=== PATIENT | female | born 1945 | race Caucasian/White ===

== ENCOUNTER → 2016-09-20 | Outpatient (CLI) | payer MEDICARE ==
[~2016-09-20] MED LIST: /PANT40TA; /SUCR1TA; ACET65TA; GINGER; NEUR800T; TUMERIC; VITACAP31
--- NOTE | 2016-09-20 11:00 | REP ---
Chest x-ray: Two views. History: Cough. 2 weeks duration. . Comparison study: August 11, 2015 . Findings: The lungs are well inflated and free of infiltrate. The pleural angles are sharp. The heart size is normal. Pulmonary vasculature is not increased. No significant bony abnormality is seen. Impression: Negative chest x-ray. Signed by Justo Corona MD 09/20/2016 10:52 A
== END ==
LOC: M WUC 10:43
PROVIDERS: ATTEND Physician Assistant
DX: R05 Cough (principal)

== ENCOUNTER → 2017-08-26 | Outpatient (CLI) | payer MEDICARE ==
[2017-08-26 16:28] LABS: MEAN CORPUSCULAR HGB CONC 32.3 g/dl (32.0-36.5); MEAN CORPUSCULAR VOLUME 92.8 fl (80.0-96.0); PLATELET COUNT, AUTOMATED 292 10^3/uL (150-450); RED CELL DISTRIBUTION WIDTH 13.7 % (11.5-14.5); WHITE BLOOD COUNT 5.9 10^3/uL (4.0-10.0)
[2017-08-26 18:13] LABS: ALBUMIN 3.7 GM/DL (3.2-5.2); ALBUMIN/GLOBULIN RATIO 1.48 (1.00-1.93); ALKALINE PHOSPHATASE 65 U/L (45-117); ALT/SGPT 20 U/L (12-78); ANION GAP 6 MEQ/L (8-16); AST/SGOT 19 U/L (7-37); BILIRUBIN,TOTAL 0.2 MG/DL (0.2-1.0); BLOOD UREA NITROGEN 18 MG/DL (7-18); CALCIUM LEVEL 8.6 MG/DL (8.8-10.2); CARBON DIOXIDE LEVEL 31 MEQ/L (21-32); CHLORIDE LEVEL 107 MEQ/L (98-107); CHOLESTEROL LEVEL 188 MG/DL (<200); CREATININE FOR GFR 0.98 MG/DL (0.55-1.02); FREE T4 0.93 NG/DL (0.76-1.46); GLOMERULAR FILTRATION RATE 59.6 (>39); GLUCOSE, FASTING 87 MG/DL (83-110); POTASSIUM SERUM 4.1 MEQ/L (3.5-5.1); SODIUM LEVEL 144 MEQ/L (136-145); TOTAL PROTEIN 6.2 GM/DL (6.4-8.2); TRIGLYCERIDES LEVEL 164 MG/DL (<150)
== END ==
LOC: M WUC 15:07
DX: D50.9 Iron deficiency anemia, unspecified (principal); E78.5 Hyperlipidemia, unspecified
CPT/HCPCS: 83735

== ENCOUNTER → 2017-08-31 | Outpatient (CLI) | payer MEDICARE | LOC: M ADAMS 09:22 | DX: M19.012 Primary osteoarthritis, left shoulder (principal); Z23 Encounter for immunization | CPT/HCPCS: 73030; 82746 ==

== ENCOUNTER → 2017-08-31 | Outpatient (REF) | payer MEDICARE ==
[2017-08-31 12:57] LABS: FOLATE 9.6 NG/ML; VITAMIN B12 LEVEL 395 PG/ML
[2017-08-31 13:10] LABS: FERRITIN 31 NG/ML (8-252); IRON (FE) 80 UG/DL (50-170); PERCENT SATURATION 24.4 % (13.2-45.0); TOTAL IRON BINDING CAPACITY 328 UG/DL (250-450)
== END ==
LOC: M SFHCADAM 09:37
DX: D50.8 Other iron deficiency anemias (principal)
CPT/HCPCS: 82746

== ENCOUNTER → 2017-12-28 | Outpatient (CLI) | payer MEDICARE | LOC: M WUC 10:43 | DX: M25.561 Pain in right knee (principal); M25.562 Pain in left knee | CPT/HCPCS: 73560 ==

== ENCOUNTER 2019-01-10 07:01 | Emergency (ER) | payer MEDICARE ==
[~2019-01-10] VITALS: Ht 162.6 cm; Wt 68.5 kg
[~2019-01-10 07:01] MED LIST changes: -/PANT40TA; -/SUCR1TA; +PROT1TAB2; +SUCR1TAB56
[2019-01-10] MEDS ORDERED: NS 1,000 ML IV ONE (07:30)
[2019-01-10 07:57] LABS: BASO # 0.1 10^3/uL (0.0-0.2); BASO % 0.6 % (0.0-1.0); EOS # 0.2 10^3/uL (0.0-0.50); EOS % 2.2 % (0.0-3.0); HEMATOCRIT 42.3 % (36.0-47.0); HEMOGLOBIN 13.6 g/dl (12.0-15.5); LYMPH # 1.3 10^3/uL (1.5-4.5); LYMPH % 15.1 % (24.0-44.0); MEAN CORPUSCULAR HGB CONC 32.2 g/dl (32.0-36.5); MEAN CORPUSCULAR VOLUME 93.4 fl (80.0-96.0); MONO # 0.4 10^3/uL (0.0-0.8); NEUTROPHILS # 6.7 10^3/uL (1.8-7.7); NEUTROPHILS % 76.8 % (36.0-66.0); PLATELET COUNT, AUTOMATED 301 10^3/uL (150-450); RED BLOOD COUNT 4.53 10^6/uL (4.00-5.40); WHITE BLOOD COUNT 8.7 10^3/uL (4.0-10.0)
[2019-01-10 08:33] LABS: ALBUMIN 3.5 GM/DL (3.2-5.2); ALT/SGPT 20 U/L (12-78); AMYLASE 49 U/L (25-115); BILIRUBIN,DIRECT 0.1 MG/DL (0.0-0.2); BILIRUBIN,TOTAL 0.5 MG/DL (0.2-1.0); BLOOD UREA NITROGEN 21 MG/DL (7-18); CALCIUM LEVEL 8.5 MG/DL (8.8-10.2); CARBON DIOXIDE LEVEL 27 MEQ/L (21-32); CHLORIDE LEVEL 105 MEQ/L (98-107); CPK CREATINE PHOSPHOKINASE 103 U/L (26-192); GLUCOSE, FASTING 113 MG/DL (70-100); LIPASE 81 U/L (73-393); MB/CK RELATIVE INDEX 1.17 (< OR =4); POTASSIUM SERUM 4.2 MEQ/L (3.5-5.1); SODIUM LEVEL 138 MEQ/L (136-145); TROPONIN I < 0.02 NG/ML (< 0.10)
--- NOTE | 2019-01-10 09:29 | REP ---
Right quadrant sonography: History: Epigastric pain and nausea. Comparison CT study is from February 05, 2009. Findings: Scanning through the right upper quadrant of the abdomen demonstrates a normal sized thin-walled gallbladder without evidence of stone or polyp. There is a small quantity of right pleural fluid visible. Common bile duct is at the upper range of normal of 0.7 cm. There is a septated cyst in the liver measuring 1.8 cm in greatest diameter. There is a small cyst visible on the 2009 CT study. No focal liver mass lesion is seen. Limited views of the pancreas show no abnormality. There is no evidence of ascites. The right kidney measures 9.9 x 4.8 x 3.9 cm. Impression: There is a trace of right pleural fluid. A small cyst is seen in the left lobe of the liver unchanged. Otherwise negative right upper quadrant sonography. Electronically Signed by Justo Corona MD 01/10/2019 01:39 P
[2019-01-10] MEDS ORDERED: PANTOPRAZOLE 40MG INJ (PROTONIX) (C9113) IV ONE (09:45)
[2019-01-10] MEDS ORDERED: FAMOTIDINE INJ 20MG/2ML VIAL (S0028) IVP ONE (09:45)
--- NOTE | 2019-01-10 09:55 | REP ---
Chest two views HISTORY: Pleural effusion Comparison: 09/20/2016 The lungs are clear. The heart is normal in size. The pulmonary vasculature is normal in appearance. The bony structure is intact. IMPRESSION: No acute disease. Electronically Signed by Kenneth Bonilla MD 01/10/2019 09:47 A
[2019-01-10] MEDS ORDERED: PEPC1TAB5 PO (10:29)
[2019-01-10] MEDS ORDERED: PROT1TAB2 PO (10:29)
[2019-01-10 10:48] VITALS: BP 136/83
--- NOTE | 2019-01-10 13:33 | ECGEPIP ---
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
--- NOTE | 2019-01-16 13:56 | ED PDOC ---
Post-Departure Follow-Up salty may faxed formal report of us for fu Rosendo Akins MD January 16, 2019 13:56
== END 2019-01-10 10:55 | disposition home or self-care (01) ==
LOC: M ED 07:01
DX: R10.13 Epigastric pain (principal); K76.89 Other specified diseases of liver; M54.9 Dorsalgia, unspecified; K27.9 Peptic ulcer, site unspecified, unspecified as acute or chronic, without hemorrhage or perforation; Z87.01 Personal history of pneumonia (recurrent); Z87.440 Personal history of urinary (tract) infections; Z88.0 Allergy status to penicillin
CPT/HCPCS: 71046; 76705; 80048; 80076; 81001; 82150; 82550; 82553; 83690; 84484; 85025; 87086; 93005; 96360; 96374; 96375; 99284; C9113

== ENCOUNTER → 2019-03-27 | Outpatient (REF) | payer MEDICARE ==
[~2019-03-27] MED LIST changes: +CARA1TAB6 PO; +CBD OIL SL; +PEPC1TAB5 PO; +PROT1TAB2 PO
[2019-03-27 11:42] LABS: BASO # 0.1 10^3/uL (0.0-0.2); EOS # 0.3 10^3/uL (0.0-0.50); HEMATOCRIT 39.4 % (36.0-47.0); HEMOGLOBIN 12.3 g/dl (12.0-15.5); LYMPH # 1.2 10^3/uL (1.5-4.5); LYMPH % 23.2 % (24.0-44.0); MEAN CORPUSCULAR HEMOGLOBIN 29.7 pg (27.0-33.0); MEAN CORPUSCULAR HGB CONC 31.2 g/dl (32.0-36.5); MEAN CORPUSCULAR VOLUME 95.2 fl (80.0-96.0); MONO # 0.4 10^3/uL (0.0-0.8); MONO % 8.1 % (0.0-5.0); NEUTROPHILS # 3.2 10^3/uL (1.8-7.7); NEUTROPHILS % 62.1 % (36.0-66.0); PLATELET COUNT, AUTOMATED 293 10^3/uL (150-450); RED BLOOD COUNT 4.14 10^6/uL (4.00-5.40); WHITE BLOOD COUNT 5.2 10^3/uL (4.0-10.0)
[2019-03-27 12:41] LABS: CALCIUM LEVEL 9.5 MG/DL (8.8-10.2); CREATININE FOR GFR 1.03 MG/DL (0.55-1.30); FREE T4 0.93 NG/DL (0.76-1.46); GLOMERULAR FILTRATION RATE 55.9 (>39); MAGNESIUM LEVEL 2.3 MG/DL (1.8-2.4); POTASSIUM SERUM 4.7 MEQ/L (3.5-5.1); THYROID STIMULATING HORMONE 2.66 uIU/ML (0.358-3.740); TOTAL 25(OH) VITAMIN D 32.9 NG/ML (30.0-100.0)
== END ==
LOC: M SFHCPLAZ 10:20
PROVIDERS: ATTEND Family Medicine
DX: R00.2 Palpitations (principal); R53.82 Chronic fatigue, unspecified
CPT/HCPCS: 36415; 80048; 82306; 83735; 84439; 84443; 85025; G0463

== ENCOUNTER → 2019-05-29 | Outpatient (CLI) | payer MEDICARE ==
--- NOTE | 2019-06-01 23:09 | HOLTMON ---
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 No activity reported with the maximum heart rate. Rare isolated PACs, including few atrial runs. The longest with 10 beats. Rare isolated PVCs, including very few couplets. No ventricular run. No pause. There were no symptoms reported. Electronically Signed on 06-01-2019 23:09:38 EDT by Gasper Guidry
== END ==
LOC: M RAD 13:31
PROVIDERS: ATTEND Family Medicine
DX: R55 Syncope and collapse (principal)

== ENCOUNTER → 2019-06-18 | Outpatient (CLI) | payer MEDICARE ==
--- NOTE | 2019-06-29 02:27 | ECWPNPC ---
PATIENT NAME: CHRISTIE SIMON : 1945 GENDER: FEMALE VISIT DATE: 06/18/2019 DISCHARGE DATE: 06/18/19 1128 VISIT LOCKED DATE TIME: PHYSICIAN: VALORIE ROSS RESOURCE: VALORIE ROSS REASON FOR APPOINTMENT 1. STENOSIS HISTORY OF PRESENT ILLNESS PAIN SCREENIN74 Y/O REFERRED BY DR MCKEON FOR EVALUATION OF CHRONIC RIGHT LOW BACK AND RIGHT LEG PAIN.HISTORY OF LUMBAR SURGERY X2 IN 1994 AND 1996.PAIN IS DESCRIBEAS CONTINUOUS AND STABBING.PAIN IS AGGREVATED WITH WALKING AND RELIEVED AT REST.RATING PAIN VAS 4/10.DR SANTOS OFFERED ANOTHER SURGERY AND PATIENT DOES NOT WANT MORE SURGERY.DENIES RECENT FEVER,ILLNESS OR WEIGHT LOSS.DENIES BOWEL OR BLADDER INCONTINENCE. PATIENT HAS A COMPLAINT OF ACUTE OR CHRONIC PAIN :YES FALL RISK SCREENING: SCREENING :NO FALLS REPORTED IN THE LAST YEAR CURRENT MEDICATIONS TAKING PROTONIX 40 MG TABLET DELAYED RELEASE 1 TABLET ORALLY ONCE A DAY TAKING FAMOTIDINE 20 MG TABLET 1 TAB ORAL ONCE A DAY TAKING IRBESARTAN 75 MG TABLET 1/2 TABLET ORALLY BID NOT-TAKING CARAFATE 1 GM TABLET 1 TABLET ON AN EMPTY STOMACH ORALLY THREE TIMES DAILY BEFORE MEALS NOT-TAKING GABAPENTIN 100 MG CAPSULE 1 CAPSULE ORALLY THREE TIMES DAILY, NOTES: START WITH 1 CAPSULE AT BEDTIME AND INCREASE BY 1 CAPSULE WEEKLY UNTIL TAKING 3 TIMES DAILY NOT-TAKING TIZANIDINE HCL 2 MG TABLET 1 TABLET ORALLY BEFORE BEDTIME MEDICATION LIST REVIEWED AND RECONCILED WITH THE PATIENT PAST MEDICAL HISTORY IRON DEFICIENCY ANEMIA (CELIAC NEGATIVE) GERD S/P LUMBAR FUSION 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 CHEVY DEUTSCH) EGD (NORMAL)/COLONOSCOPY MILD DIVERTICULOSIS), DUODENAL BIOPSY NEGATIVE. (DR. AGUIRRE) 06/2012 LEFT KNEE REPLACEMENT 2005 RIGHT KNEE REPLACEMENT 2010 PELVIC FLOOR RECONSTRUCTION SECONDARY TO BLADDER PROLAPSE/HYSTERECTOMY 2009 CYSTOSCOPY FOR MICROSCOPIC HEMATURIA - NORMAL (DR. PEREZ 09/2012 EGD - NORMAL (PREVIOUS ULCERATIONS HEALED) COLONOSCOPY - TUBULAR ADENOMAS, DIVERTICULOSIS - MILD, HEMORRHOIDS 2008 EGD - GASTRIC AND DUDENAL ULCER - NEGATIVE H. PYLORI, BIOPSY NEGATIVE FOR MALIGNANCY, DOUDENITIS/GASTRITIS 2007 FAMILY HISTORY FATHER: MOTHER: 84 YRS, HEART ATTACK SIBLINGS: ALIVE, ONE SISTER FROM BREAST CANCER. DAUGHTER(S): LUPUS - POSSIBLE KIDNEY ISSUES RELATED TO DISEASE PROCESS. 2 SISTER(S) . 1 SON(S) , 2 DAUGHTER(S) . NO KNOWN FAMILY HX OF UROLOGIC CANCERS/DISEASES. DENIES ANY FAMILY HX SKIN CANCER OR PANCREATIC CANCER 1 SISTER FROM CANCER SON 2 YEARS FROM HEART ISSUES. SOCIAL HISTORY GENERAL: TOBACCO USE ARE YOU A:NONSMOKER OTHERS AT HOME: NONE. HOUSING: RENTS APARTMENT. EDUCATION LEVEL OF EDUCATION:HIGH SCHOOL DIET: REGULAR. LANGUAGE LIBYAN. NEW PATIENT PAIN DIARY TODAY'S VISITNOTES PATIENT DESCRIBES PAIN :STABBING FROM 0-10, WHAT LEVEL IS YOUR PAIN TODAY?4 PRECIPITATING FACTORS OVER EXERTION, WALKING TOO MUCH ALLEVIATING FACTORS GETTING OFF HER FEET AND STRETCHING PT HAS NOT WORKED TOO PAINFUL AFTER FUSION HEAT AND/OR ICE HAVE WORKED IMPACT ON FUNCTION JUST CAN NOT DO EVERYTHING I WOULD LIKE TO DO IS THERE A CHANCE YOU COULD BE ?NO HAVE YOU BEEN SICK IN THE LAST WEEK (COLD, COUGH, FEVER, FLU, ETC)NO DO YOU TAKE ANY BLOOD THINNERS?NO DO YOU HAVE ANY RASHES OR OPEN SORES?NO ANY CHANGE IN BOWEL OR BLADDER CONTROL?NO ARE YOU ALLERGIC TO SHELLFISH OR IV DYE?NO ARE YOU DIABETIC?NO DO YOU HAVE A PACEMAKER OR DEFIBRILLATOR?NO ANY NEW PROBLEMS WITH MEDICINES OR NEW ALLERGIESNO HAVE YOU FALLEN IN THE LAST 6 MONTHS?YES THINKS IT WAS RELATED TO HYPERTENSION, IT MADE HER VERY DIZZY, BUT STATES IT HAS BEEN BEEN WITH BP MEDS DO YOU USE ANY TYPE OF TOBACCO (SMOKE, SMOKELESS, CHEW, ETC.)NO ARE YOU ABUSED, NEGLECTED, OR IN AN UNSAFE ENVIRONMENT?NO DO YOU HAVE THOUGHTS OF HURTING YOURSELF OR SOMEONE ELSE?NO DO YOU NEED ANY PRESCRIPTIONS? UNSURE INTENSITY SCALE REVIEWEDNUMBER RECREATIONAL DRUG USE DENIES. EXERCISE: BIKES. LEARNING BARRIERS / SPECIAL NEEDS BARRIERS TO LEARNING?NO HEARING IMPAIRED?NO VISION IMPAIRED?YES COGNITIVELY IMPAIRED?NO :CORRECTIVE LENSES READINESS TO LEARN?YES LEARNING PREFERENCES?NO LEARNING CAPABILITIES PRESENT?YES EMOTIONAL BARRIERS?NO PAIN CLINIC PFS, CLERGY, PUBLIC HEALTH REFERRALS PFS REFERRAL NEEDED?NO CLERGY REFERRAL NEEDED?NO PUBLIC HEALTH REFERRAL NEEDED?NO WAS THE PROVIDER NOTIFIED OF ANY PERTINENT INFO?NO HAS THE PATIENT BEEN EDUCATED REGARDING HIS/HER PLAN OF CARE?YES PLEASE DOCUMENT ANY ADDTIONAL DETAILS.PLEASE FREE TEXT IN THE NOTES SECTION. HAS THE PATIENT BEEN EDUCATED REGARDING PAIN, THE RISK FOR PAIN, THE IMPORTANCE OF EFFECTIVE PAIN MANAGEMENT, AND THE PAIN ASSESSMENT PROCESS?YES LATEX QUESTIONNAIRE LATEX ALLERGY : HAVE YOU EVER DEVELOPED ANY TYPE OF REACTION AFTER HANDLING LATEX PRODUCTS SUCH RUBBER GLOVES, CONDOMS, DIAPHRAGMS, BALLOONS, SOCKS, OR UNDERWEAR?NO LATEX ALLERGY : HAVE YOU EVER DEVELOPED ANY TYPE OF REACTION DURING OR AFTER DENTAL APPOINTMENT, VAGINAL/RECTAL EXAMINATION, SURGICAL PROCEDURE, OR ANY OTHER EXPOSURE?NO LATEX RISK : HAVE YOU EVER HAD ANY DIFFICULTY BREATHING OR HIVES AFTER EATING OR HANDLING ANY FRUITS, OR VEGETABLES; SUCH KIWI, BANANAS, STONE FRUITS, OR CHESTNUTSNO LATEX RISK : DO YOU HAVE A PREVIOUS PERSONAL HISTORY OF MORE THAN NINE SURGERIES, SPINA BIFIDA, OR REPEATED CATHERIZATIONS? NO LATEX RISK : ARE YOU FREQUENTLY EXPOSED TO LATEX PRODUCTS IN YOUR OCCUPATION?NO DATE ASKED : 06/18/2019 [place] 1-2/DAY. ADVANCE DIRECTIVE ADVANCE DIRECTIVE DISCUSSED WITH PATIENT:NO STATES SHE HAS NO ADVANCED DIRECTIVES, HCP PAPERWORK GIVEN TO PT, PT DECLINES ASSISTANCE TO FILL OUT PAPERWORK 06/18/19 1040 [facility] MANDAEISM NO CONFUCIANISM BELIEFS THAT WOULD IMPACT HEALTH CARE. MARITAL STATUS: .. ALCOHOL SCREENING DID YOU HAVE A DRINK CONTAINING ALCOHOL IN THE PAST YEAR?YES HOW OFTEN DID YOU HAVE SIX OR MORE DRINKS ON ONE OCCASION IN THE PAST YEAR?NEVER (0 POINTS) HOW MANY DRINKS DID YOU HAVE ON A TYPICAL DAY WHEN YOU WERE DRINKING IN THE PAST YEAR?1 OR 2 (0 POINTS) HOW OFTEN DID YOU HAVE A DRINK CONTAINING ALCOHOL IN THE PAST YEAR?MONTHLY OR LESS (1 POINT) POINTS1 INTERPRETATIONNEGATIVE OCCUPATION: RETIRED. SEXUAL HX HAD SEX IN THE LAST 12 MONTHS (VAGINAL, ORAL, OR ANAL)?NO HAVE YOU EVER HAD AN STD?NO HOSPITALIZATION/MAJOR DIAGNOSTIC PROCEDURE SURGICAL RELATED ANEMIA 2008 CHILDBIRTH REVIEW OF SYSTEMS REVIEWED BY: PROVIDER: VALORIE FRANK . CONSTITUTIONAL: ANY CHANGE IN YOUR MEDICAL CONDITION? NO . CHILLS NO . FEVER NO . INFECTION: DO YOU HAVE NEW INFECTIONS? NO . DO YOU HAVE HISTORY OF MRSA? NO . MUSCULOSKELETAL: ANY NEW PATTERNS OF PAIN OR NUMBNESS? YES- PAIN IN LOWER BACK AND RIGHT CLAF AND HIP . SYTEMIC LUPUS NO . GASTROENTEROLOGY: ANY NEW CHANGE IN BOWEL CONTROL? NO . BARRETTS ESOPHAGUS NO . CIRRHOSIS NO . HEPATITIS NO . LIVER FAILURE NO . ACID REFLUX YES . UNEXPLAINED WEIGHT LOSS NO . GENITOURINARY: ANY NEW CHANGE IN BLADDER CONTROL? NO . IS THERE A CHANCE YOU COULD BE ? NO . HEMATOLOGY/LYMPH: DO YOU TAKE ANY BLOOD THINNERS? (FOR EXAMPLE- COUMADIN, PLAVIX, AGGRENOX, PLATEL, PRADAXA, OR XARELTO) NO . WHEN WAS YOUR LAST DOSE? DATE: TIME: . LOW PLATELET COUNT NO . SICKLE CELL DISEASE NO . VON WILLIEBRANDS NO . FACTOR V LEIDEN NO . THALLASEMIA NO . ANEMIA YES . EASY BRUISING NO . NEUROLOGY: HAVE YOU FALLEN IN THE PAST 12 MONTHS? YES- RELATED TO DIZZINESS FROM HTN, NOW BETTER AFTER STARTING MEDS, DR MACHADO IS FOLLOWING PATIENT FOR THIS . ANY NEW EXTREMITY NUMBNESS OR WEAKNESS? NO . HEAD INJURY NO . DEMENTIA NO . CEREBRAL PALSY NO . MULTIPLE SCLEROSIS NO . DIZZINESS IMPROVING- HAS STARTED BP MEDS AND DIZZINESS IS IMPROVING . HEADACHE NO . STROKES NO . VERTIGO NO . CARDIOLOGY: DO YOU HAVE A PACEMAKER OR DEFIBRILLATOR? NO . ANGINA NO . HEART ATTACK NO . HEART SURGERY NO . CONGESTIVE HEART FAILURE/FLUID OVERLOAD NO . CHEST PAIN NO . HIGH BLOOD PRESSURE NEWLY DIAGNOSED, ON MEDICATION(S) . IRREGULAR HEART BEAT NO . RESPIRATORY: HAVE YOU BEEN SICK IN THE PAST WEEK? NO . FEVER NO . FLU LIKE SYMPTOMS? NO . CPAP NO . BYPAP NO . ASTHMA NO . EMPHYSEMA NO . CHRONIC LUNG DISEASES NO . SHORTNESS OF BREATH ON EXERTION YES . COUGH NO . SNORING NO . INTEGUMENTARY: DO YOU HAVE ANY RASHES OR OPEN SORES? NO . ALLERGIC/IMMUNO: ARE YOU ALLERGIC TO IV DYE? NO . ANY NEW ALLERGIES? NO . PSYCHIATRIC: DO YOU HAVE THOUGHTS OF HURTING YOURSELF OR SOMEONE ELSE? NO . ARE YOU ABUSED, NEGLECTED, OR IN AN UNSAFE ENVIRONMENT? NO . ENDOCRINOLOGY: ARE YOU DIABETIC? NO . THYROID DISORDER NO . OTHER: DO YOU NEED ANY PRESCRIPTIONS? NO . IF YES, PLEASE LIST: ____ . ANY NEW PROBLEMS WITH YOUR MEDICATIONS? NO . WHEN DID YOU LAST EAT? ____ . WHEN DID YOU LAST DRINK? ____ . WHAT DID YOU LAST DRINK? ____ . NAME OF PERSON DRIVING YOU HOME? ____ . DO YOU HAVE ANY OTHER QUESTIONS OR CONCERNS YES- OPTIONS FOR PAIN CONTROL . VITAL SIGNS WT 145.0 LBS, HT 64 IN, BMI 24.89 INDEX, BP 131/61 MM HG, HR 69 /MIN, RR 18 /MIN, TEMP 97.6 F, OXYGEN SAT % 97%, SAFE IN ENV? (Y/N) YES, NA INITIALS MA 10:26, REVIEWED BY: BRE. EXAMINATION GENERAL EXAMINATION: GENERAL AWAKE,ALERT ,PLEAASANT . PSYCH AFFECT NORMAL . NECK: TRACHEA MIDLINE. NO CERVICAL OR SUPRACLAVICULAR LYMPHADENOPATHY NOTED. LUNGS: LUNG GODWIN ARE CLEAR TO AUSCULTATION BILATERALLY. GOOD MOVEMENT OF AIR . HEART: S1, S2 IN A REGULAR RATE AND RHYTHM. NO SIGNIFICANT MURMURS, RUBS OR GALLOPS NOTED . MUSCULOSKELETAL: MUSCLE STRENGTH TESTING 5/5 BILATERAL UPPER/LOWER EXTREMITIES. LUMBAR SACRAL SPINE PALPATION: NEGATIVE FOR PAIN OVER L/S SPINE.WELL HEALED SURGICAL SCAR.SPECIFIC POINT TENDERNESS NOTED OVER RIGHT SIJ. POSITIVE [place] TEST OVER RIGHT .MODIFIED SLR + OVER RIGHT LEG WITH PAIN NOTED LEFT LOW BACK. . SKIN: NO RASH OR SKIN LESIONS. NEUROLOGIC EXAM: CN'S NORMAL TESTED , DTRS 1-2+ IN ALL 4 EXTREMITIES. DIAGNOSTIC TESTS REVIEWED MRI L/S SPINE-02/2019. ASSESSMENTS SACROILIITIS - M46.1 (PRIMARY) TREATMENT SACROILIITIS NOTES: RIGHT SIJ. OTHERS NOTES: SACROILIAC JOINT PAIN MATERIAL WAS PRINTED AND SIJ PROCEDURE REVIEWED WITH PATIENT 06/18/19 1127 BRE. PROCEDURE CODES FA211 ESTABILISHED PATIENT [facility] CHARGE DISPOSITION & COMMUNICATION FOLLOW UP POST (REASON: RIGHT SIJ) ELECTRONICALLY SIGNED BY ZAC MCDOWELL ON 06/28/2019 AT 03:34 PM EDT DISCLAIMER : THIS IS A VISIT SUMMARY EXTRACTED FROM THE [employer] CHART. IT IS NOT A COPY OF THE [email or web address] PROGRESS NOTE. JUAN
== END ==
LOC: M PAIN 10:00
PROVIDERS: ATTEND Nurse Practitioner Family
DX: M46.1 Sacroiliitis, not elsewhere classified (principal); D50.9 Iron deficiency anemia, unspecified; K21.9 Gastro-esophageal reflux disease without esophagitis; Z98.1 Arthrodesis status; M85.80 Other specified disorders of bone density and structure, unspecified site; M81.0 Age-related osteoporosis without current pathological fracture; E53.8 Deficiency of other specified B group vitamins; I10 Essential (primary) hypertension; M19.012 Primary osteoarthritis, left shoulder; Z96.653 Presence of artificial knee joint, bilateral; Z79.899 Other long term (current) drug therapy; Z88.0 Allergy status to penicillin; Z88.8 Allergy status to other drugs, medicaments and biological substances

== ENCOUNTER → 2019-06-27 | Outpatient (REF) | payer MEDICARE | LOC: M SFHCPLAZ 11:50 | PROVIDERS: ATTEND Dermatology | DX: L57.0 Actinic keratosis (principal); D22.5 Melanocytic nevi of trunk ==

== ENCOUNTER → 2019-07-10 | Outpatient (CLI) | payer MEDICARE ==
[~2019-07-10] MED LIST changes: +BUPIVACAINE HCL 0.25% 30 ML VIAL As Ordered ONE; +ISOVUE-M 300 61% 15ML VIAL (Q9967) As Ordered ONE; +LIDOCAINE 1% SDV INJ 30 ML VIAL As Ordered ONE; +NORCO, ANEXSIA 5/325MG TABLET (HYDROcodone/ACETAMINOPHEN) As Ordered ONE; +ONDANSETRON 4 MG ORAL DISINTEGRATING TAB (Q0162 PER 1MG) As Ordered ONE; +TRIAMCINOLONE ACETONIDE SUSP 40 MG/ML VIAL (J3301) As Ordered ONE; +diazePAM 5 MG TAB As Ordered ONE
--- NOTE | 2019-07-10 12:42 | REP ---
Partial SI joint series: Right-side. Three views. History: Right SI joint block for pain. 16 seconds of fluoroscopy time is reported. Findings: A sequence of three last image hold fluoroscopically obtained spot radiographs of the SI joint document needle position and contrast injection associated with right SI joint injection procedure Electronically Signed by Justo Corona MD 07/10/2019 12:34 P
--- NOTE | 2019-07-18 01:35 | ECWPNPC ---
PATIENT NAME: CHRISTIE SIMON : 1945 GENDER: FEMALE VISIT DATE: 07/10/2019 DISCHARGE DATE: 07/10/19 1105 VISIT LOCKED DATE TIME: PHYSICIAN: PIETRO RESENDIZ MD RESOURCE: PIETRO RESENDIZ MD REASON FOR APPOINTMENT 1. RIGHT SIJ HISTORY OF PRESENT ILLNESS HISTORY OF PRESENT ILLNESS: PAIN THE PATIENT DESCRIBES THE PAIN... FALL RISK SCREENING: SCREENING :NO FALLS REPORTED IN THE LAST YEAR CURRENT MEDICATIONS TAKING PROTONIX 40 MG TABLET DELAYED RELEASE 1 TABLET ORALLY ONCE A DAY, NOTES: 07/09 0630 TAKING FAMOTIDINE 20 MG TABLET 1 TAB ORAL ONCE A DAY, NOTES: 07/09 1100 TAKING IRBESARTAN 75 MG TABLET 1/2 TABLET ORALLY BID, NOTES: 07/09 173 NOT-TAKING CARAFATE 1 GM TABLET 1 TABLET ON AN EMPTY STOMACH ORALLY THREE TIMES DAILY BEFORE MEALS NOT-TAKING GABAPENTIN 100 MG CAPSULE 1 CAPSULE ORALLY THREE TIMES DAILY, NOTES: START WITH 1 CAPSULE AT BEDTIME AND INCREASE BY 1 CAPSULE WEEKLY UNTIL TAKING 3 TIMES DAILY NOT-TAKING TIZANIDINE HCL 2 MG TABLET 1 TABLET ORALLY BEFORE BEDTIME MEDICATION LIST REVIEWED AND RECONCILED WITH THE PATIENT PAST MEDICAL HISTORY IRON DEFICIENCY ANEMIA (CELIAC NEGATIVE) GERD S/P LUMBAR FUSION 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 CHEVY DEUTSCH) EGD (NORMAL)/COLONOSCOPY MILD DIVERTICULOSIS), DUODENAL BIOPSY NEGATIVE. (DR. AGUIRRE) 06/2012 LEFT KNEE REPLACEMENT 2005 RIGHT KNEE REPLACEMENT 2010 PELVIC FLOOR RECONSTRUCTION SECONDARY TO BLADDER PROLAPSE/HYSTERECTOMY 2009 CYSTOSCOPY FOR MICROSCOPIC HEMATURIA - NORMAL (DR. PEREZ 09/2012 EGD - NORMAL (PREVIOUS ULCERATIONS HEALED) COLONOSCOPY - TUBULAR ADENOMAS, DIVERTICULOSIS - MILD, HEMORRHOIDS 2008 EGD - GASTRIC AND DUDENAL ULCER - NEGATIVE H. PYLORI, BIOPSY NEGATIVE FOR MALIGNANCY, DOUDENITIS/GASTRITIS 2008 HYSTERECTOMY 2009 FAMILY HISTORY FATHER: MOTHER: 84 YRS, HEART ATTACK SIBLINGS: ALIVE, ONE SISTER FROM BREAST CANCER. DAUGHTER(S): LUPUS - POSSIBLE KIDNEY ISSUES RELATED TO DISEASE PROCESS. 2 SISTER(S) . 1 SON(S) , 2 DAUGHTER(S) . NO KNOWN FAMILY HX OF UROLOGIC CANCERS/DISEASES. DENIES ANY FAMILY HX SKIN CANCER OR PANCREATIC CANCER 1 SISTER FROM CANCER SON 2 YEARS FROM HEART ISSUES. SOCIAL HISTORY GENERAL: TOBACCO USE ARE YOU A:NONSMOKER OTHERS AT HOME: NONE. HOUSING: RENTS APARTMENT. EDUCATION LEVEL OF EDUCATION:HIGH SCHOOL DIET: REGULAR. LANGUAGE SETS[place]. DOMESTIC VIOLENCE DO YOU FEEL SAFE IN YOUR ENVIRONMENT?YES RECREATIONAL DRUG USE DENIES. EXERCISE: BIKES. LEARNING BARRIERS / SPECIAL NEEDS BARRIERS TO LEARNING?NO HEARING IMPAIRED?NO VISION IMPAIRED?YES :CORRECTIVE LENSES COGNITIVELY IMPAIRED?NO READINESS TO LEARN?YES LEARNING PREFERENCES?NO LEARNING CAPABILITIES PRESENT?YES EMOTIONAL BARRIERS?NO SPECIAL DEVICES?NO SENIOR APPLICATION SOFTWARE ENGINEER NEEDED?NO PAIN CLINIC PFS, CLERGY, PUBLIC HEALTH REFERRALS PFS REFERRAL NEEDED?NO CLERGY REFERRAL NEEDED?NO PUBLIC HEALTH REFERRAL NEEDED?NO WAS THE PROVIDER NOTIFIED OF ANY PERTINENT INFO?NO HAS THE PATIENT BEEN EDUCATED REGARDING HIS/HER PLAN OF CARE?YES PLEASE DOCUMENT ANY ADDTIONAL DETAILS.PLEASE FREE TEXT IN THE NOTES SECTION. HAS THE PATIENT BEEN EDUCATED REGARDING PAIN, THE RISK FOR PAIN, THE IMPORTANCE OF EFFECTIVE PAIN MANAGEMENT, AND THE PAIN ASSESSMENT PROCESS?YES LATEX QUESTIONNAIRE LATEX ALLERGY : HAVE YOU EVER DEVELOPED ANY TYPE OF REACTION AFTER HANDLING LATEX PRODUCTS SUCH RUBBER GLOVES, CONDOMS, DIAPHRAGMS, BALLOONS, SOCKS, OR UNDERWEAR?NO LATEX ALLERGY : HAVE YOU EVER DEVELOPED ANY TYPE OF REACTION DURING OR AFTER DENTAL APPOINTMENT, VAGINAL/RECTAL EXAMINATION, SURGICAL PROCEDURE, OR ANY OTHER EXPOSURE?NO LATEX RISK : HAVE YOU EVER HAD ANY DIFFICULTY BREATHING OR HIVES AFTER EATING OR HANDLING ANY FRUITS, OR VEGETABLES; SUCH KIWI, BANANAS, STONE FRUITS, OR CHESTNUTSNO LATEX RISK : DO YOU HAVE A PREVIOUS PERSONAL HISTORY OF MORE THAN NINE SURGERIES, SPINA BIFIDA, OR REPEATED CATHERIZATIONS? NO LATEX RISK : ARE YOU FREQUENTLY EXPOSED TO LATEX PRODUCTS IN YOUR OCCUPATION?NO DATE ASKED : 07/10/2019 CAFFEINE 1-2/DAY. ADVANCE DIRECTIVE ADVANCE DIRECTIVE DISCUSSED WITH PATIENT:YES 07/10/19 PT DOES NOT HAVE ANY ADVANCED DIRECTIVES AND SHE DECLINES INFORMATION ON HCP AT THIS TIME. AD VOODOO NO SHINTO BELIEFS THAT WOULD IMPACT HEALTH CARE. MARITAL STATUS: .. ALCOHOL SCREENING DID YOU HAVE A DRINK CONTAINING ALCOHOL IN THE PAST YEAR?YES HOW OFTEN DID YOU HAVE SIX OR MORE DRINKS ON ONE OCCASION IN THE PAST YEAR?NEVER (0 POINTS) HOW MANY DRINKS DID YOU HAVE ON A TYPICAL DAY WHEN YOU WERE DRINKING IN THE PAST YEAR?1 OR 2 (0 POINTS) HOW OFTEN DID YOU HAVE A DRINK CONTAINING ALCOHOL IN THE PAST YEAR?MONTHLY OR LESS (1 POINT) POINTS1 INTERPRETATIONNEGATIVE OCCUPATION: RETIRED. SEXUAL HX HAD SEX IN THE LAST 12 MONTHS (VAGINAL, ORAL, OR ANAL)?NO HAVE YOU EVER HAD AN STD?NO HOSPITALIZATION/MAJOR DIAGNOSTIC PROCEDURE SURGICAL RELATED ANEMIA 2007 CHILDBIRTH REVIEW OF SYSTEMS REVIEWED BY: PROVIDER: . CONSTITUTIONAL: ANY CHANGE IN YOUR MEDICAL CONDITION? NO . CHILLS NO . FEVER NO . INFECTION: DO YOU HAVE NEW INFECTIONS? YES, SINUS INFECTION APPROX 2 WEEKS AGO. TREATED WITH ANTIBIOTIC WHICH SHE COMPLETED LAST . S/S RESOLVED NOW . DO YOU HAVE HISTORY OF MRSA? NO . MUSCULOSKELETAL: ANY NEW PATTERNS OF PAIN OR NUMBNESS? YES, WEEKNESS AND DISHA HORSE RIGHT CALF FOR THE PAST 6 MONTHS . GASTROENTEROLOGY: ANY NEW CHANGE IN BOWEL CONTROL? NO . GENITOURINARY: ANY NEW CHANGE IN BLADDER CONTROL? NO . IS THERE A CHANCE YOU COULD BE ? NO . HEMATOLOGY/LYMPH: DO YOU TAKE ANY BLOOD THINNERS? (FOR EXAMPLE- COUMADIN, PLAVIX, AGGRENOX, PLATEL, PRADAXA, OR XARELTO) NO . WHEN WAS YOUR LAST DOSE? DATE: TIME: . NEUROLOGY: HAVE YOU FALLEN IN THE PAST 12 MONTHS? YES 2-3 TIMES BECAME DIZZY AND LOST HER BALANCE. NO MAJOR INJURIES . ANY NEW EXTREMITY NUMBNESS OR WEAKNESS? NO . CARDIOLOGY: DO YOU HAVE A PACEMAKER OR DEFIBRILLATOR? NO . RESPIRATORY: HAVE YOU BEEN SICK IN THE PAST WEEK? NO . FEVER NO . FLU LIKE SYMPTOMS? NO . COUGH NO . INTEGUMENTARY: DO YOU HAVE ANY RASHES OR OPEN SORES? YES, HAD DERMATOLOGY PROCEDURE LEFT LOWER LEG 7-10 DAYS AGO. AREA IS COVERED WITH A BANDAID . ALLERGIC/IMMUNO: ARE YOU ALLERGIC TO IV DYE? NO . ANY NEW ALLERGIES? NO . PSYCHIATRIC: DO YOU HAVE THOUGHTS OF HURTING YOURSELF OR SOMEONE ELSE? NO . ARE YOU ABUSED, NEGLECTED, OR IN AN UNSAFE ENVIRONMENT? NO . ENDOCRINOLOGY: ARE YOU DIABETIC? NO . OTHER: DO YOU NEED ANY PRESCRIPTIONS? NO . IF YES, PLEASE LIST: ____ . ANY NEW PROBLEMS WITH YOUR MEDICATIONS? NO . WHEN DID YOU LAST EAT? 07/09 1800 . WHEN DID YOU LAST DRINK? 07/10 0530 . WHAT DID YOU LAST DRINK? WATER . NAME OF PERSON DRIVING YOU HOME? FREDERICK GARCIA . DO YOU HAVE ANY OTHER QUESTIONS OR CONCERNS NO . VITAL SIGNS WT 147 LBS, HT 64 IN, BMI 25.23 INDEX, BP 169/99 MM HG, HR 95 /MIN, RR 18 /MIN, TEMP 98.1 F, OXYGEN SAT % 100%, NA INITIALS SC 09:15. ASSESSMENTS SACROILIITIS - M46.1 (PRIMARY) TREATMENT SACROILIITIS [facility] FLUORO GUIDANCE (PAIN)[id number] PROCEDURES PN SI PRE PROCEDURE DIAGNOSIS SACROILIITIS, SACROILIAC JOINT DYSFUNCTION POST PROCEDURE DIAGNOSIS SACROILIITIS, SACROILIAC JOINT DYSFUNCTION PROCEDURE RIGHT SACROILIAC JOINT BLOCK SURGEON DR. PIETRO RESENDIZ CONTROL ROOM TENDER NONE ANESTHESIA LOCAL PRE PROCEDURE NOTE PATIENT WITH HISTORY OF CHRONIC LOW BACK PAIN. I EVALUATED THE PATIENT AND REVIEWED THE CHART. I WENT OVER THE RISKS, ALTERNATIVES, AND BENEFITS ASSOCIATED WITH THIS PROCEDURE. THE PATIENT WOULD LIKE TO PROCEED AND GAVE CONSENT TO PERFORM THE PROCEDURE. THE PATIENT DENIES UNEXPLAINABLE WEIGHT LOSS, FEVER, CHILLS, OR NEW CHANGES IN URINARY OR BOWEL CONTROL DESCRIPTION OF PROCEDURE THE PATIENT WAS BROUGHT TO THE PROCEDURE ROOM AND PLACED IN THE PRONE POSITION. THE LUMBOSACRAL AREA WAS CLEANED WITH CHLORAPREP SOLUTION AND DRAPED ASEPTICALLY. THE PROCEDURE WAS DONE UNDER STERILE CONDITIONS. I CHECKED LATERALITY AND THE LEVEL WHERE THE PROCEDURE WAS GOING TO BE PERFORMED WITH THE PATIENT AND THE SUPPORTING STAFF AT THE MOMENT OF THE TIME OUT IN THE PROCEDURE ROOM. UNDER FLUOROSCOPIC GUIDANCE, TARGET POINT WAS SELECTED AT THE LOWER BORDER OF THE RIGHT SACROILIAC JOINT. TARGET POINT WAS SELECTED AFTER MEDIAL ROTATION AND TILT OF THE MAGNIFIER OF THE C-ARM. LIDOCAINE WAS USED TO NUMB THE SKIN AND SUBCUTANEOUS TISSUE BELOW IT. A SPINAL NEEDLE, 22-GAUGE, WAS ADVANCED UNDER FLUOROSCOPIC GUIDANCE AND FOLLOWING PATIENT FEEDBACK UNTIL THE TARGET AREA WAS TOUCHED. THE POSITION OF THE NEEDLE WAS VERIFIED WITH AP AND LATERAL VIEWS. AFTER PROPER POSITION OF THE NEEDLE WAS ACHIEVED, ISOVUE M DYE 30%, 0.25 ML, WAS INJECTED SHOWING SPREAD OF THE DYE. THEN, A SOLUTION OF 20 MG OF KENALOG WAS INJECTED IN RIGHT JOINT WITH 3 ML OF BUPIVACAINE 0.125%. THERE WAS NO EVIDENCE OF BLOOD, PARESTHESIA OR CEREBROSPINAL FLUID DURING THE PROCEDURE. THE PATIENT WAS SENT TO THE RECOVERY ROOM. THE PATIENT WAS MOVING THE EXTREMITIES AND DOING WELL. THERE WAS NO COMPLICATION DURING THE PROCEDURE. FLUOROSCOPY TIME WAS 16 SECONDS POST PROCEDURE NOTE THE PATIENT WILL BE SEEN IN A FOLLOW UP IN THE NEXT FEW WEEKS. INSTRUCTIONS WERE GIVEN, QUESTIONS WERE ANSWERED, AND THE PATIENT EXPRESSED UNDERSTANDING AND AGREED WITH THE PLAN. I, ANTHONY SAUNDERS, DOCUMENTED THE ABOVE INFORMATION ACTING A SCRIBE FOR DR. RESENDIZ. I HAVE REVIEWED THE ABOVE DOCUMENT, WRITTEN BY ANTHONY ROTHMANIBCindy AND I VERIFY THAT IT IS ACCURATE. PROCEDURE CODES 04373 INJECT SACROILIAC JOINT, MODIFIERS: RT 6045F RADXPS IN END [id number] PXD DISPOSITION & COMMUNICATION FOLLOW UP 3 WEEKS ELECTRONICALLY SIGNED BY PIETRO RESENDIZ MD, MD ON 07/17/2019 AT 03:15 PM EST DISCLAIMER : THIS IS A VISIT SUMMARY EXTRACTED FROM THE [employer] CHART. IT IS NOT A COPY OF THE [employer] PROGRESS NOTE. MTDD
== END ==
LOC: M PAIN 09:00
PROVIDERS: ATTEND Anesthesiology
DX: M46.1 Sacroiliitis, not elsewhere classified (principal); D50.9 Iron deficiency anemia, unspecified; M85.80 Other specified disorders of bone density and structure, unspecified site; E53.8 Deficiency of other specified B group vitamins; L50.9 Urticaria, unspecified; I10 Essential (primary) hypertension; Z79.899 Other long term (current) drug therapy; Z96.653 Presence of artificial knee joint, bilateral; Z88.0 Allergy status to penicillin; Z88.8 Allergy status to other drugs, medicaments and biological substances
CPT/HCPCS: G0260; J3301; Q0162; Q9967

== ENCOUNTER → 2019-08-06 | Outpatient (CLI) | payer MEDICARE ==
[~2019-08-06] MED LIST changes: -BUPIVACAINE HCL 0.25% 30 ML VIAL As Ordered ONE; -ISOVUE-M 300 61% 15ML VIAL (Q9967) As Ordered ONE; -LIDOCAINE 1% SDV INJ 30 ML VIAL As Ordered ONE; -NORCO, ANEXSIA 5/325MG TABLET (HYDROcodone/ACETAMINOPHEN) As Ordered ONE; -ONDANSETRON 4 MG ORAL DISINTEGRATING TAB (Q0162 PER 1MG) As Ordered ONE; -TRIAMCINOLONE ACETONIDE SUSP 40 MG/ML VIAL (J3301) As Ordered ONE; -diazePAM 5 MG TAB As Ordered ONE
--- NOTE | 2019-08-17 01:07 | ECWPNPC ---
PATIENT NAME: CHRISTIE SIMON : 1945 GENDER: FEMALE VISIT DATE: 08/06/2019 DISCHARGE DATE: 08/06/19 1100 VISIT LOCKED DATE TIME: PHYSICIAN: VALORIE ROSS PHYSICIAN PAGER NO: [phone] RESOURCE: VALORIE ROSS REASON FOR APPOINTMENT 1. POST PROCEDURE HISTORY OF PRESENT ILLNESS HISTORY OF PRESENT ILLNESS: HERE FOR POST PROCEDURE F/U.HAD RIGHT SIJ ON 07/10/19.REPORTING MARKED REDUCTION IN PAIN THAT CONTINUES TODAY.RATING PAIN VAS 1-2/10.REPORTING INTERMITTENT RIGHT CALF AND FOOT CRAMPING AT NIGHT. PAIN THE PATIENT DESCRIBES THE PAIN... 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 ACUTE BLOOD LOSS ANEMIA 2007-TX 3U EGD SHOWED GASTRIC ULCERS AND GASTRITIC AND DUODENITIS LUMBAR SPONDYLOSIS OSTEOPENIA DEXA 05/2011 FRAX SCORE = 13/2.7, OSTEOPOROSIS DEXA 2013 FRAX 22/5.6 - INTOLERANT OF BISPHOSPHONATES 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 CHEVY DEUTSCH) EGD (NORMAL)/COLONOSCOPY MILD DIVERTICULOSIS), DUODENAL BIOPSY NEGATIVE. (DR. AGUIRRE) 06/2012 LEFT KNEE REPLACEMENT 2005 RIGHT KNEE REPLACEMENT 2010 PELVIC FLOOR RECONSTRUCTION SECONDARY TO BLADDER PROLAPSE/HYSTERECTOMY 2009 CYSTOSCOPY FOR MICROSCOPIC HEMATURIA - NORMAL (DR. PEREZ 09/2012 EGD - NORMAL (PREVIOUS ULCERATIONS HEALED) COLONOSCOPY - TUBULAR ADENOMAS, DIVERTICULOSIS - MILD, HEMORRHOIDS 2008 EGD - GASTRIC AND DUDENAL ULCER - NEGATIVE H. PYLORI, BIOPSY NEGATIVE FOR MALIGNANCY, DOUDENITIS/GASTRITIS 2007 HYSTERECTOMY 2008 FAMILY HISTORY FATHER: MOTHER: 84 YRS, HEART ATTACK SIBLINGS: ALIVE, ONE SISTER FROM BREAST CANCER. DAUGHTER(S): LUPUS - POSSIBLE KIDNEY ISSUES RELATED TO DISEASE PROCESS. 2 SISTER(S) . 1 SON(S) , 2 DAUGHTER(S) . NO KNOWN FAMILY HX OF UROLOGIC CANCERS/DISEASES. DENIES ANY FAMILY HX SKIN CANCER OR PANCREATIC CANCER 1 SISTER FROM CANCER SON 2 YEARS FROM HEART ISSUES. SOCIAL HISTORY GENERAL: TOBACCO USE ARE YOU A:NONSMOKER OTHERS AT HOME: NONE. HOUSING: RENTS APARTMENT. EDUCATION LEVEL OF EDUCATION:HIGH SCHOOL DIET: REGULAR. LANGUAGE ESTONIAN. DOMESTIC VIOLENCE DO YOU FEEL SAFE IN YOUR ENVIRONMENT?YES RECREATIONAL DRUG USE DENIES. EXERCISE: BIKES. LEARNING BARRIERS / SPECIAL NEEDS BARRIERS TO LEARNING?NO HEARING IMPAIRED?NO VISION IMPAIRED?YES COGNITIVELY IMPAIRED?NO :CORRECTIVE LENSES READINESS TO LEARN?YES LEARNING PREFERENCES?NO LEARNING CAPABILITIES PRESENT?YES EMOTIONAL BARRIERS?NO SPECIAL DEVICES?NO IMMIGRATION LAW SPECIALIST NEEDED?NO PAIN CLINIC PFS, CLERGY, PUBLIC HEALTH REFERRALS PFS REFERRAL NEEDED?NO CLERGY REFERRAL NEEDED?NO PUBLIC HEALTH REFERRAL NEEDED?NO WAS THE PROVIDER NOTIFIED OF ANY PERTINENT INFO?NO HAS THE PATIENT BEEN EDUCATED REGARDING HIS/HER PLAN OF CARE?YES PLEASE DOCUMENT ANY ADDTIONAL DETAILS.PLEASE FREE TEXT IN THE NOTES SECTION. HAS THE PATIENT BEEN EDUCATED REGARDING PAIN, THE RISK FOR PAIN, THE IMPORTANCE OF EFFECTIVE PAIN MANAGEMENT, AND THE PAIN ASSESSMENT PROCESS?YES LATEX QUESTIONNAIRE LATEX ALLERGY : HAVE YOU EVER DEVELOPED ANY TYPE OF REACTION AFTER HANDLING LATEX PRODUCTS SUCH RUBBER GLOVES, CONDOMS, DIAPHRAGMS, BALLOONS, SOCKS, OR UNDERWEAR?NO LATEX ALLERGY : HAVE YOU EVER DEVELOPED ANY TYPE OF REACTION DURING OR AFTER DENTAL APPOINTMENT, VAGINAL/RECTAL EXAMINATION, SURGICAL PROCEDURE, OR ANY OTHER EXPOSURE?NO LATEX RISK : HAVE YOU EVER HAD ANY DIFFICULTY BREATHING OR HIVES AFTER EATING OR HANDLING ANY FRUITS, OR VEGETABLES; SUCH KIWI, BANANAS, STONE FRUITS, OR CHESTNUTSNO LATEX RISK : DO YOU HAVE A PREVIOUS PERSONAL HISTORY OF MORE THAN NINE SURGERIES, SPINA BIFIDA, OR REPEATED CATHERIZATIONS? NO LATEX RISK : ARE YOU FREQUENTLY EXPOSED TO LATEX PRODUCTS IN YOUR OCCUPATION?NO DATE ASKED : 07/10/2019 CAFFEINE 1-2/DAY. ADVANCE DIRECTIVE ADVANCE DIRECTIVE DISCUSSED WITH PATIENT:YES 08/06/19 PT DOES NOT HAVE ANY ADVANCED DIRECTIVES AND SHE DECLINES INFORMATION ON HCP AT THIS TIME. JS CONFUCIANIST NO ANABAPTISM BELIEFS THAT WOULD IMPACT HEALTH CARE. MARITAL STATUS: .. ALCOHOL SCREENING DID YOU HAVE A DRINK CONTAINING ALCOHOL IN THE PAST YEAR?YES HOW OFTEN DID YOU HAVE SIX OR MORE DRINKS ON ONE OCCASION IN THE PAST YEAR?NEVER (0 POINTS) HOW MANY DRINKS DID YOU HAVE ON A TYPICAL DAY WHEN YOU WERE DRINKING IN THE PAST YEAR?1 OR 2 (0 POINTS) HOW OFTEN DID YOU HAVE A DRINK CONTAINING ALCOHOL IN THE PAST YEAR?MONTHLY OR LESS (1 POINT) POINTS1 INTERPRETATIONNEGATIVE OCCUPATION: RETIRED. SEXUAL HX HAD SEX IN THE LAST 12 MONTHS (VAGINAL, ORAL, OR ANAL)?NO HAVE YOU EVER HAD AN STD?NO REVIEWED WITH PATIENT 08/06/19 1022 JS. HOSPITALIZATION/MAJOR DIAGNOSTIC PROCEDURE SURGICAL RELATED ANEMIA 2008 CHILDBIRTH REVIEW OF SYSTEMS REVIEWED BY: PROVIDER: VALORIE FRANK . CONSTITUTIONAL: ANY CHANGE IN YOUR MEDICAL CONDITION? NO . CHILLS NO . FEVER NO . INFECTION: DO YOU HAVE NEW INFECTIONS? YES, SINUS AND EAR INFECTION APPROX 3 WEEKS AGO - FEELING BETTER NOW . DO YOU HAVE HISTORY OF MRSA? NO . MUSCULOSKELETAL: ANY NEW PATTERNS OF PAIN OR NUMBNESS? YES, PAIN IMPROVED SINCE INJECTION . GASTROENTEROLOGY: ANY NEW CHANGE IN BOWEL CONTROL? NO . GENITOURINARY: ANY NEW CHANGE IN BLADDER CONTROL? NO . IS THERE A CHANCE YOU COULD BE ? NO . HEMATOLOGY/LYMPH: DO YOU TAKE ANY BLOOD THINNERS? (FOR EXAMPLE- COUMADIN, PLAVIX, AGGRENOX, PLATEL, PRADAXA, OR XARELTO) NO . WHEN WAS YOUR LAST DOSE? DATE: TIME: . NEUROLOGY: HAVE YOU FALLEN IN THE PAST 12 MONTHS? YES, STATES PRIOR TO LAST VISIT, DISCUSSED AT PREVIOUS VISIT . ANY NEW EXTREMITY NUMBNESS OR WEAKNESS? NO . CARDIOLOGY: DO YOU HAVE A PACEMAKER OR DEFIBRILLATOR? NO . RESPIRATORY: HAVE YOU BEEN SICK IN THE PAST WEEK? NO . FEVER NO . FLU LIKE SYMPTOMS? NO . COUGH NO . INTEGUMENTARY: DO YOU HAVE ANY RASHES OR OPEN SORES? NO . ALLERGIC/IMMUNO: ARE YOU ALLERGIC TO IV DYE? NO . ANY NEW ALLERGIES? NO . PSYCHIATRIC: DO YOU HAVE THOUGHTS OF HURTING YOURSELF OR SOMEONE ELSE? NO . ARE YOU ABUSED, NEGLECTED, OR IN AN UNSAFE ENVIRONMENT? NO . ENDOCRINOLOGY: ARE YOU DIABETIC? NO . OTHER: DO YOU NEED ANY PRESCRIPTIONS? NO . IF YES, PLEASE LIST: ____ . ANY NEW PROBLEMS WITH YOUR MEDICATIONS? NO . WHEN DID YOU LAST EAT? ____ . WHEN DID YOU LAST DRINK? ____ . WHAT DID YOU LAST DRINK? ____ . NAME OF PERSON DRIVING YOU HOME? ____ . DO YOU HAVE ANY OTHER QUESTIONS OR CONCERNS FLU VACCINE LAST TUESDAY . VITAL SIGNS WT 143.6 LBS, HT 64 IN, BMI 24.65 INDEX, BP 113/61 MM HG, HR 115 /MIN, RR 18 /MIN, TEMP 96.9 F, OXYGEN SAT % 97%, SAFE IN ENV? (Y/N) YES, NA INITIALS AW 1007, REVIEWED BY: KATIE. EXAMINATION GENERAL EXAMINATION: GENERALAWAKE,ALERT ,PLEAASANT . PSYCHAFFECT NORMAL . LUNGS:LUNG GODWIN ARE CLEAR TO AUSCULTATION BILATERALLY. GOOD MOVEMENT OF AIR . HEART:S1, S2 IN A REGULAR RATE AND RHYTHM. NO SIGNIFICANT MURMURS, RUBS OR GALLOPS NOTED . ASSESSMENTS SACROILIITIS - M46.1 (PRIMARY) TREATMENT SACROILIITIS NOTES: CONTINUE HOME EXCERSISE AND STRETCHING.CONSIDER TRIAL OF MAGNESIUM 200MG TWICE A DAY FOR NIGHTTIME CRAMPING PREVENTION. PROCEDURE CODES FA211 ESTABILISHED PATIENT [facility] CHARGE DISPOSITION & COMMUNICATION FOLLOW UP 3 MONTHS (REASON: LBP/RIGHT LEG PAIN) ELECTRONICALLY SIGNED BY ZAC MCDOWELL ON 08/16/2019 AT 03:42 PM EST DISCLAIMER : THIS IS A VISIT SUMMARY EXTRACTED FROM THE [employer] CHART. IT IS NOT A COPY OF THE [employer] PROGRESS NOTE. JUAN
== END ==
LOC: M PAIN 10:00
PROVIDERS: ATTEND Nurse Practitioner Family
DX: M46.1 Sacroiliitis, not elsewhere classified (principal); K21.9 Gastro-esophageal reflux disease without esophagitis; I10 Essential (primary) hypertension; Z96.653 Presence of artificial knee joint, bilateral; Z88.0 Allergy status to penicillin; Z88.8 Allergy status to other drugs, medicaments and biological substances; Z79.899 Other long term (current) drug therapy

== ENCOUNTER → 2019-10-08 | Outpatient (CLI) | payer MEDICARE ==
[2019-10-08 08:19] LABS: BASO # 0.1 10^3/uL (0.0-0.2); BASO % 1.1 % (0.0-1.0); EOS # 0.4 10^3/uL (0.0-0.5); EOS % 4.9 % (0.0-3.0); HEMATOCRIT 38.3 % (36.0-47.0); HEMOGLOBIN 11.8 g/dl (12.0-15.5); LYMPH # 1.4 10^3/uL (1.5-5.0); MEAN CORPUSCULAR HEMOGLOBIN 29.5 pg (27.0-33.0); MEAN CORPUSCULAR HGB CONC 30.8 g/dl (32.0-36.5); MEAN CORPUSCULAR VOLUME 95.8 fl (80.0-96.0); MONO # 0.5 10^3/uL (0.0-0.8); MONO % 6.1 % (0.0-5.0); NEUTROPHILS # 5.2 10^3/uL (1.5-8.5); NEUTROPHILS % 69.8 % (36.0-66.0); PLATELET COUNT, AUTOMATED 291 10^3/uL (150-450); WHITE BLOOD COUNT 7.5 10^3/uL (4.0-10.0)
[2019-10-08 08:30] LABS: HEMATOCRIT 38.3 % (36.0-47.0)
[2019-10-08 09:01] LABS: ALBUMIN 3.6 GM/DL (3.2-5.2); ALT/SGPT 13 U/L (12-78); BILIRUBIN,TOTAL 0.4 MG/DL (0.2-1.0); BLOOD UREA NITROGEN 17 MG/DL (7-18); CALCIUM LEVEL 9.8 MG/DL (8.8-10.2); CARBON DIOXIDE LEVEL 29 MEQ/L (21-32); CHLORIDE LEVEL 108 MEQ/L (98-107); FREE T4 1.14 NG/DL (0.76-1.46); GLOMERULAR FILTRATION RATE 46.9 (>39); GLUCOSE, FASTING 96 MG/DL (70-100); POTASSIUM SERUM 4.3 MEQ/L (3.5-5.1); SODIUM LEVEL 143 MEQ/L (136-145); TOTAL PROTEIN 6.2 GM/DL (6.4-8.2)
[2019-10-08 09:39] LABS: THYROID PEROXIDASE ANTIBODY < 28.0 U/ML (<60.0); TOTAL 25(OH) VITAMIN D 38.3 NG/ML (30.0-100.0)
[2019-10-08 09:40] LABS: PTH INTACT 26.9 PG/ML (18.5-88.0); VITAMIN B12 LEVEL 220 PG/ML (247-911)
[2019-10-08 10:49] LABS: HEMOGLOBIN A1c 5.5 %
[2019-10-09 11:26] LABS: ALBUMIN 3.83 GM/DL (3.29-5.55); ALBUMIN % 61.8 % (55.8-66.1); ALPHA-1-GLOBULIN % 5.7 % (2.9-4.9); ALPHA-1-GLOBULINS 0.35 GM/DL (0.17-0.41); ALPHA-2-GLOBULINS 0.89 GM/DL (0.42-0.99); ALPHA-2-GLOBULINS % 14.3 % (7.1-11.8); BETA-1-GLOBULINS 0.35 GM/DL (0.28-0.60); BETA-1-GLOBULINS % 5.6 % (4.7-7.2); BETA-2-GLOBULINS % 4.9 % (3.2-6.5); GAMMA GLOBULIN % 7.7 % (11.1-18.8); GAMMA GLOBULINS 0.48 GM/DL (0.65-1.58)
== END ==
LOC: M LAB 06:01
PROVIDERS: ATTEND Family Medicine
DX: E53.8 Deficiency of other specified B group vitamins (principal); M81.0 Age-related osteoporosis without current pathological fracture; I10 Essential (primary) hypertension

== ENCOUNTER → 2019-10-12 | Outpatient (CLI) | payer MEDICARE ==
--- NOTE | 2019-10-12 12:34 | REPMRS ---
Patient History The patient states she has not had a clinical breast exam in over a year. Patient is postmenopausal. Family history of breast cancer at age 58 in sister. Digital Woman Screen Mammo: October 12, 2019 - Exam #: [id number] Bilateral CC and MLO view(s) were taken. Technologist: Maite Joseph, Technologist No prior studies available for comparison. FINDINGS: There are scattered fibroglandular densities. There is no evidence of dominant mass, architectural distortion, or grouped microcalcification typical of malignancy. 3-D tomosynthesis shows no additional findings. Assessment: BI-RADS/ACR category 1 mammogram. Negative Mammogram. Recommendation Routine screening mammogram of both breasts in 1 year (for women over age 40). This patient's Lifetime Breast Cancer RIsk is estimated at 6.6 %. This mammogram was interpreted with the aid of an FDA-approved computer-aided dectection system. Electronically Signed By: Michael Corona MD 10/12/19 [id number]
--- NOTE | 2019-10-16 13:20 | DEXA ---
AP SPINE L1 - L4 1.003 -1.5 0.3 LT FEMUR TOTAL 0.808 -1.6 0.1 LT NECK 0.688 -2.5 -0.7 RT FEMUR TOTAL 0.766 -1.9 -0.3 RT NECK 0.738 -2.2 -0.3 TOTAL BODY TOTAL OTHER COMMENTS: There is low bone density of the spine and hips. The density of the spine is increased 3.8% since 08/01/2008. The density of the left hip has decreased 4.6% since 08/01/2008. The density of the right hip has decreased 7.5% since 08/01/2008. FOLLOW-UP: Recommendation for the next bone density exam: 2 years. JUAN
== END ==
LOC: M WHC 11:54
PROVIDERS: ATTEND Family Medicine
DX: Z12.31 Encounter for screening mammogram for malignant neoplasm of breast (principal); M81.0 Age-related osteoporosis without current pathological fracture; M85.851 Other specified disorders of bone density and structure, right thigh; M85.852 Other specified disorders of bone density and structure, left thigh; M85.88 Other specified disorders of bone density and structure, other site; Z80.3 Family history of malignant neoplasm of breast

== ENCOUNTER → 2019-11-05 | Outpatient (CLI) | payer MEDICARE ==
--- NOTE | 2019-11-21 04:58 | ECWPNPC ---
PATIENT NAME: CHRISTIE SIMON : 1945 GENDER: FEMALE VISIT DATE: 11/05/2019 DISCHARGE DATE: 11/05/19924 VISIT LOCKED DATE TIME: PHYSICIAN: VALORIE ROSS PHYSICIAN PAGER NO: [phone] RESOURCE: VALORIE ROSS REASON FOR APPOINTMENT 1. MED AB-LBP/RIGHT LEG PAIN HISTORY OF PRESENT ILLNESS HISTORY OF PRESENT ILLNESS: HERE FOR FOLLOW-UP OF CHRONIC LOW BACK PAIN. WAS DOING WELL POST RIGHT SIJ UP UNTIL ABOUT A MONTH AGO. REPORTING PAIN HAS GRADUALLY RETURNED BUT NOT SEVERE. REPORTS BOTH SIDES OF HER LOWER BACK BEING INVOLVED MORE SO NOW. HISTORY OF LUMBAR SURGERY X2. ALSO, REPORTING RIGHT INNER CALF TENDERNESS OVER THE PAST MONTH. SHE WAS CONCERNED ABOUT A BLOOD CLOT. NEGATIVE HOMANS SIGN. NO AREAS OF REDNESS OR SWELLING. DENIES NEW EXERCISE OR INCREASE IN ACTIVITY. HAS ALWAYS SUFFERED FROM RIGHT L4-5 CALF NUMBNESS POST SURGERY. REPORTING MILD WEAKNESS IN HER RIGHT LOWER EXTREMITY. REPORTING PAIN LEVEL A 3/10 VAS. PAIN THE PATIENT DESCRIBES THE PAIN... 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 ACUTE BLOOD LOSS ANEMIA 2007-TX 3U EGD SHOWED GASTRIC ULCERS AND GASTRITIC AND DUODENITIS LUMBAR SPONDYLOSIS OSTEOPENIA DEXA 05/2011 FRAX SCORE = 13/2.7, OSTEOPOROSIS DEXA 2013 FRAX 22/5.6 - INTOLERANT OF BISPHOSPHONATES 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 CHEVY DEUTSCH) EGD (NORMAL)/COLONOSCOPY MILD DIVERTICULOSIS), DUODENAL BIOPSY NEGATIVE. (DR. AGUIRRE) 06/2012 LEFT KNEE REPLACEMENT 2005 RIGHT KNEE REPLACEMENT 2010 PELVIC FLOOR RECONSTRUCTION SECONDARY TO BLADDER PROLAPSE/HYSTERECTOMY 2009 CYSTOSCOPY FOR MICROSCOPIC HEMATURIA - NORMAL (DR. PEREZ 09/2012 EGD - NORMAL (PREVIOUS ULCERATIONS HEALED) COLONOSCOPY - TUBULAR ADENOMAS, DIVERTICULOSIS - MILD, HEMORRHOIDS 2008 EGD - GASTRIC AND DUDENAL ULCER - NEGATIVE H. PYLORI, BIOPSY NEGATIVE FOR MALIGNANCY, DOUDENITIS/GASTRITIS 2007 HYSTERECTOMY 2008 FAMILY HISTORY FATHER: MOTHER: 84 YRS, HEART ATTACK SIBLINGS: ALIVE, ONE SISTER FROM BREAST CANCER. DAUGHTER(S): LUPUS - POSSIBLE KIDNEY ISSUES RELATED TO DISEASE PROCESS. 2 SISTER(S) . 1 SON(S) , 2 DAUGHTER(S) . NO KNOWN FAMILY HX OF UROLOGIC CANCERS/DISEASES. DENIES ANY FAMILY HX SKIN CANCER OR PANCREATIC CANCER 1 SISTER FROM CANCER SON 2 YEARS FROM HEART ISSUES. SOCIAL HISTORY GENERAL: TOBACCO USE ARE YOU A:NONSMOKER OTHERS AT HOME: NONE. HOUSING: RENTS APARTMENT. EDUCATION LEVEL OF EDUCATION:HIGH SCHOOL DIET: REGULAR. LANGUAGE SOUTH KOREAN. DOMESTIC VIOLENCE DO YOU FEEL SAFE IN YOUR ENVIRONMENT?YES RECREATIONAL DRUG USE DENIES. EXERCISE: BIKES. LEARNING BARRIERS / SPECIAL NEEDS BARRIERS TO LEARNING?NO HEARING IMPAIRED?NO VISION IMPAIRED?YES COGNITIVELY IMPAIRED?NO :CORRECTIVE LENSES READINESS TO LEARN?YES LEARNING PREFERENCES?NO LEARNING CAPABILITIES PRESENT?YES EMOTIONAL BARRIERS?NO SPECIAL DEVICES?NO ELECTRIC OPERATOR NEEDED?NO PAIN CLINIC PFS, CLERGY, PUBLIC HEALTH REFERRALS PFS REFERRAL NEEDED?NO CLERGY REFERRAL NEEDED?NO PUBLIC HEALTH REFERRAL NEEDED?NO WAS THE PROVIDER NOTIFIED OF ANY PERTINENT INFO?NO HAS THE PATIENT BEEN EDUCATED REGARDING HIS/HER PLAN OF CARE?YES PLEASE DOCUMENT ANY ADDTIONAL DETAILS.PLEASE FREE TEXT IN THE NOTES SECTION. HAS THE PATIENT BEEN EDUCATED REGARDING PAIN, THE RISK FOR PAIN, THE IMPORTANCE OF EFFECTIVE PAIN MANAGEMENT, AND THE PAIN ASSESSMENT PROCESS?YES LATEX QUESTIONNAIRE LATEX ALLERGY : HAVE YOU EVER DEVELOPED ANY TYPE OF REACTION AFTER HANDLING LATEX PRODUCTS SUCH RUBBER GLOVES, CONDOMS, DIAPHRAGMS, BALLOONS, SOCKS, OR UNDERWEAR?NO LATEX ALLERGY : HAVE YOU EVER DEVELOPED ANY TYPE OF REACTION DURING OR AFTER DENTAL APPOINTMENT, VAGINAL/RECTAL EXAMINATION, SURGICAL PROCEDURE, OR ANY OTHER EXPOSURE?NO LATEX RISK : HAVE YOU EVER HAD ANY DIFFICULTY BREATHING OR HIVES AFTER EATING OR HANDLING ANY FRUITS, OR VEGETABLES; SUCH KIWI, BANANAS, STONE FRUITS, OR CHESTNUTSNO LATEX RISK : DO YOU HAVE A PREVIOUS PERSONAL HISTORY OF MORE THAN NINE SURGERIES, SPINA BIFIDA, OR REPEATED CATHERIZATIONS? NO LATEX RISK : ARE YOU FREQUENTLY EXPOSED TO LATEX PRODUCTS IN YOUR OCCUPATION?NO DATE ASKED : 07/10/2019 CAFFEINE 1-2/DAY. ADVANCE DIRECTIVE ADVANCE DIRECTIVE DISCUSSED WITH PATIENT:YES 11/05/2019 PT DOES NOT HAVE ANY ADVANCED DIRECTIVES AND SHE DECLINES INFORMATION ON HCP AT THIS TIME. JS LATTER DAY NO SYNAGOGUE BELIEFS THAT WOULD IMPACT HEALTH CARE. MARITAL STATUS: .. ALCOHOL SCREENING DID YOU HAVE A DRINK CONTAINING ALCOHOL IN THE PAST YEAR?YES HOW OFTEN DID YOU HAVE SIX OR MORE DRINKS ON ONE OCCASION IN THE PAST YEAR?NEVER (0 POINTS) HOW MANY DRINKS DID YOU HAVE ON A TYPICAL DAY WHEN YOU WERE DRINKING IN THE PAST YEAR?1 OR 2 (0 POINTS) HOW OFTEN DID YOU HAVE A DRINK CONTAINING ALCOHOL IN THE PAST YEAR?MONTHLY OR LESS (1 POINT) POINTS1 INTERPRETATIONNEGATIVE OCCUPATION: RETIRED. SEXUAL HX HAD SEX IN THE LAST 12 MONTHS (VAGINAL, ORAL, OR ANAL)?NO HAVE YOU EVER HAD AN STD?NO REVIEWED WITH PATIENT 08/06/19 1022 JSREVIEWED WITH PATIENT 11/05/2019 0901 JS. HOSPITALIZATION/MAJOR DIAGNOSTIC PROCEDURE SURGICAL RELATED ANEMIA 2008 CHILDBIRTH REVIEW OF SYSTEMS REVIEWED BY: PROVIDER: VALORIE FRANK . CONSTITUTIONAL: ANY CHANGE IN YOUR MEDICAL CONDITION? NO . CHILLS NO . FEVER NO . INFECTION: DO YOU HAVE NEW INFECTIONS? NO . DO YOU HAVE HISTORY OF MRSA? NO . MUSCULOSKELETAL: ANY NEW PATTERNS OF PAIN OR NUMBNESS? NO . GASTROENTEROLOGY: ANY NEW CHANGE IN BOWEL CONTROL? NO . GENITOURINARY: ANY NEW CHANGE IN BLADDER CONTROL? NO . IS THERE A CHANCE YOU COULD BE ? NO . HEMATOLOGY/LYMPH: DO YOU TAKE ANY BLOOD THINNERS? (FOR EXAMPLE- COUMADIN, PLAVIX, AGGRENOX, PLATEL, PRADAXA, OR XARELTO) NO . WHEN WAS YOUR LAST DOSE? DATE: TIME: . NEUROLOGY: HAVE YOU FALLEN IN THE PAST 12 MONTHS? NO . ANY NEW EXTREMITY NUMBNESS OR WEAKNESS? NO . CARDIOLOGY: DO YOU HAVE A PACEMAKER OR DEFIBRILLATOR? NO . RESPIRATORY: HAVE YOU BEEN SICK IN THE PAST WEEK? NO . FEVER NO . FLU LIKE SYMPTOMS? NO . COUGH NO . INTEGUMENTARY: DO YOU HAVE ANY RASHES OR OPEN SORES? NO . ALLERGIC/IMMUNO: ARE YOU ALLERGIC TO IV DYE? NO . ANY NEW ALLERGIES? NO . PSYCHIATRIC: DO YOU HAVE THOUGHTS OF HURTING YOURSELF OR SOMEONE ELSE? NO . ARE YOU ABUSED, NEGLECTED, OR IN AN UNSAFE ENVIRONMENT? NO . ENDOCRINOLOGY: ARE YOU DIABETIC? NO . OTHER: DO YOU NEED ANY PRESCRIPTIONS? NO . IF YES, PLEASE LIST: ____ . ANY NEW PROBLEMS WITH YOUR MEDICATIONS? NO . WHEN DID YOU LAST EAT? ____ . WHEN DID YOU LAST DRINK? ____ . WHAT DID YOU LAST DRINK? ____ . NAME OF PERSON DRIVING YOU HOME? ____ . DO YOU HAVE ANY OTHER QUESTIONS OR CONCERNS NO . VITAL SIGNS WT 140.8 LBS, HT 64 IN, BMI 24.17 INDEX, BP 111/60 MM HG, HR 97 /MIN, RR 18 /MIN, TEMP 96.0 F, OXYGEN SAT % 97%, SAFE IN ENV? (Y/N) YES, NA INITIALS AW 0854, REVIEWED BY: KATIE. EXAMINATION GENERAL EXAMINATION: GENERAL AWAKE,ALERT ,PLEAASANT . PSYCH AFFECT NORMAL . LUNGS: LUNG GODWIN ARE CLEAR TO AUSCULTATION BILATERALLY. GOOD MOVEMENT OF AIR . HEART: S1, S2 IN A REGULAR RATE AND RHYTHM. NO SIGNIFICANT MURMURS, RUBS OR GALLOPS NOTED . MUSCULOSKELETAL: MUSCLE STRENGTH TESTING 5/5 BILATERAL UPPER/LOWER EXTREMITIES. LUMBAR:PALPATION: POSITIVE FOR PAIN OVER L/S SPINE.WELL HEALED SURGICAL SCAR.SPECIFIC POINT TENDERNESS NOTED OVER SIJ, RIGHT GREATER THAN LEFT. POSITIVE [place] TEST OVER RIGHT . . DIAGNOSTIC TESTS REVIEWED MRI L/S SPINE-02/2019. ASSESSMENTS SACROILIITIS - M46.1 (PRIMARY) TREATMENT SACROILIITIS NOTES: BILATERAL SIJ. PREVENTIVE MEDICINE PAIN CLINIC TEACHING: PROCEDURE TEACHING REVIEWED INFORMATION ON SACROILIAC JOINT INJECTION PROCEDURE WITH PATIENT. ALSO REVIEWED PRE-RPOCEDURE INSTRUCTIONS. PATIENT VERBALIZED AN UNDERSTANDING. SAMMIE VALDIVIA 11/05/2019 9:25:44 AM > . PROCEDURE CODES FA211 ESTABILISHED PATIENT [facility] CHARGE DISPOSITION & COMMUNICATION FOLLOW UP POST (REASON: BILATERAL SIJ) ELECTRONICALLY SIGNED BY VALORIE FRANK, ZAC ON 11/20/2019 AT 03:01 PM EDT DISCLAIMER : THIS IS A VISIT SUMMARY EXTRACTED FROM THE [employer] CHART. IT IS NOT A COPY OF THE [employer] PROGRESS NOTE. JUAN
== END ==
LOC: M PAIN 08:45
PROVIDERS: ATTEND Nurse Practitioner Family
DX: M46.1 Sacroiliitis, not elsewhere classified (principal)

== ENCOUNTER → 2020-01-17 | Outpatient (REF) | payer MEDICARE ==
[2020-01-17 14:13] LABS: BASO # 0.1 10^3/uL (0.0-0.2); BASO % 0.6 % (0.0-1.0); EOS # 0.2 10^3/uL (0.0-0.5); EOS % 2.5 % (0.0-3.0); HEMOGLOBIN 12.2 g/dl (12.0-15.5); LYMPH # 1.9 10^3/uL (1.5-5.0); LYMPH % 22.7 % (24.0-44.0); MEAN CORPUSCULAR HGB CONC 32.1 g/dl (32.0-36.5); MEAN CORPUSCULAR VOLUME 93.4 fl (80.0-96.0); MONO # 0.6 10^3/uL (0.0-0.8); MONO % 7.4 % (0.0-5.0); NEUTROPHILS # 5.5 10^3/uL (1.5-8.5); NEUTROPHILS % 66.2 % (36.0-66.0); PLATELET COUNT, AUTOMATED 314 10^3/uL (150-450); RED BLOOD COUNT 4.07 10^6/uL (4.00-5.40); WHITE BLOOD COUNT 8.4 10^3/uL (4.0-10.0)
[2020-01-17 14:20] LABS: INR 0.99; PROTHROMBIN TIME 12.8 SECONDS (11.8-14.0)
[2020-01-17 14:21] LABS: PARTIAL THROMBOPLASTIN TIME 27.2 SECONDS (25.0-38.4)
[2020-01-17 14:47] LABS: C REACTIVE PROTEIN QUANTITATIV 0.35 MG/DL (0.00-0.30); CHOLESTEROL LEVEL 218 MG/DL (<200); CHOLESTEROL RISK RATIO 3.159 (<5); FREE T4 1.12 NG/DL (0.76-1.46); HDL CHOLESTEROL 69 MG/DL (>40); LDL CHOLESTEROL 114 MG/DL (<100); NON-HDL-C 149 MG/DL; TRIGLYCERIDES LEVEL 176 MG/DL (<150); VITAMIN B12 LEVEL 419 PG/ML (247-911)
[2020-01-19 00:07] LABS: FREE LAMBDA LIGHT CHAINS SERUM 5.8 mg/L (5.7-26.3); H PYLORI SERUM QUANT IgG ABY 0.11 (0.00-0.79); KAPPA/LAMBDA RATIO SERUM 1.72 (0.26-1.65)
== END ==
LOC: M SFHCPLAZ 12:57
PROVIDERS: ATTEND Family Medicine
DX: E53.8 Deficiency of other specified B group vitamins (principal); K27.9 Peptic ulcer, site unspecified, unspecified as acute or chronic, without hemorrhage or perforation; I10 Essential (primary) hypertension; D75.89 Other specified diseases of blood and blood-forming organs

== ENCOUNTER → 2020-01-22 | Outpatient (REF) | payer MEDICARE ==
[2020-01-22 19:04] LABS: ALBUMIN 3.6 GM/DL (3.2-5.2); BILIRUBIN,TOTAL 0.4 MG/DL (0.2-1.0); CALCIUM LEVEL 9.1 MG/DL (8.8-10.2); CREATININE FOR GFR 1.03 MG/DL (0.55-1.30); GLOMERULAR FILTRATION RATE 55.9 (>39); POTASSIUM SERUM 4.2 MEQ/L (3.5-5.1); TOTAL PROTEIN 6.2 GM/DL (6.4-8.2)
== END ==
LOC: M SFHCPLAZ 15:44
PROVIDERS: ATTEND Family Medicine
DX: I10 Essential (primary) hypertension (principal)

== ENCOUNTER → 2020-02-15 | Outpatient (CLI) | payer MEDICARE | LOC: M LABSMTC 14:16 | PROVIDERS: ATTEND Anesthesiology | DX: Z03.818 Encounter for observation for suspected exposure to other biological agents ruled out (principal); Z11.59 Encounter for screening for other viral diseases ==

== ENCOUNTER → 2020-02-15 | Outpatient (CLI) | payer MEDICARE | LOC: M LABSMTC 10:29 | PROVIDERS: ATTEND Anesthesiology | DX: Z11.59 Encounter for screening for other viral diseases (principal) | CPT/HCPCS: C9803; U0003 ==

== ENCOUNTER → 2020-02-18 | Outpatient (CLI) | payer MEDICARE ==
[~2020-02-18] MED LIST changes: +BUPIVACAINE HCL 0.25% 30ML VIAL As Ordered ONE; +ISOVUE-M 300 61% 15ML VIAL As Ordered ONE; +LIDOCAINE 1% SDV 30ML VIAL As Ordered ONE; +NORCO, ANEXSIA 5/325MG TABLET (HYDROcodone/ACETAMINOPHEN) As Ordered ONE; +ONDANSETRON 4 MG ORAL DISINTEGRATING TAB As Ordered ONE; +TRIAMCINOLONE ACETONIDE SUSP 40 MG/ML VIAL (J3301) As Ordered ONE; +diazePAM 5 MG TAB As Ordered ONE
--- NOTE | 2020-02-18 11:29 | REP ---
Bilateral SI joint series: Six views. History: Bilateral SI joint injection for pain. 20 seconds of fluoroscopy time is reported. Findings: A sequence of six last image hold fluoroscopically obtained spot radiographs of the SI joints document needle position and contrast injection associated with SI joint injection procedure. Electronically Signed by Justo Corona MD 02/18/2020 11:09 A
--- NOTE | 2020-02-19 00:21 | ECWPNPC ---
PATIENT NAME: CHRISTIE SIMON : 1945 GENDER: FEMALE VISIT DATE: 02/18/2020 DISCHARGE DATE: 02/18/20 1126 VISIT LOCKED DATE TIME: PHYSICIAN: PIETRO RESENDIZ MD PHYSICIAN PAGER NO: [phone] RESOURCE: PIETRO RESENDIZ MD REASON FOR APPOINTMENT 1. BILATERAL SIJ PAT DONE HISTORY OF PRESENT ILLNESS GENERAL: -. FALL RISK SCREENING: SCREENING :NO FALLS REPORTED IN THE LAST YEAR PAIN SCREENING: PATIENT HAS A COMPLAINT OF ACUTE OR CHRONIC PAIN :YES LOCATION OF PAIN:LEFT HIP, RIGHT HIP INTENSITY OF PAIN (SCALE OF 1 TO 10):5 WHAT DOES YOUR PAIN FEEL LIKE:ACHING, CONTINOUS, STABBING, THROBBING DURATION:PERIODIC NURSING NOTE: -. PAIN CENTER INTAKE QUESTIONS: DO YOU HAVE A HISTORY OF MRSA? :NO DO YOU TAKE A BLOOD THINNERS? :NO DO YOU HAVE ANY BLEEDING DISORDERS? :NO ANY NEW NUMBNESS OR WEAKNESS IN YOUR LEGS OR ARMS? :YES PT STATES THAT SHE HAS NUMBNESS IN RIGHT CALF ANY PACEMAKER,DEFIBRILLATOR, OR DORSAL COLUMN STIMULATOR? :NO DO YOU HAVE ANY RASHES OR OPEN SORES? :NO ARE YOU ALLERGIC TO IV DYE? :NO ARE YOU DIABETIC? :NO ANY NEW PROBLEMS WITH YOUR MEDICATIONS? :NO HAVE YOU RECEIVED A VACCINE IN THE PAST 30 DAYS? :NO DO YOU PLAN TO RECEIVE A VACCINE IN THE NEXT 21 DAYS? :NO DO YOU TAKE ANY IMMUNOSUPPRESSIVE MEDICATIONS? :YES PT STATES THAT SHE RECENTLY HAD CATARACT SURGERY IN THE LAST MONTH, CURRENTLY TAKING STEROID EYE DROPS ANY HISTORY OF SEIZURES? :NO ANY HISTORY OF CARDIAC ISSUES OR EVENTS? :NO DO YOU HAVE SLEEP APNEA? : NO. ANY RECENT HEAD INJURY? :NO DO YOU HAVE ANY NEW INFECTIONS? :NO IS THERE A CHANCE YOU COULD BE ? :NO ARE YOU BREAST FEEDING? :NO WHEN DID YOU LAST EAT? : -02/17/20 WHEN DID YOU LAST DRINK? : -02/18/20529 WHAT DID YOU LAST DRINK? : -WATER NAME OF PERSON DRIVING YOU HOME? : -DAUGHTER - FREDERICK DO YOU HAVE ANY OTHER QUESTIONS OR CONCERNS? : -NO CURRENT MEDICATIONS TAKING IRBESARTAN 75 MG TABLET 1/2 TABLET ORALLY BID, NOTES: 02/18/20529 TAKING MAGNESIUM 200 MG TABLET 2 TABLETS WITH A MEAL ORALLY DAILY, NOTES: 02/17/201999 TAKING PREDNISOLONE ACETATE 1 % SUSPENSION 1 DROP INTO AFFECTED EYE OPHTHALMIC TWICE A DAY, NOTES: 02/18/20529 TAKING KETOROLAC TROMETHAMINE 0.5 % SOLUTION 1 DROP INTO AFFECTED EYE NEEDED OPHTHALMIC FOUR TIMES A DAY, NOTES: 02/18/20529 NOT-TAKING PANTOPRAZOLE SODIUM 40 MG TABLET DELAYED RELEASE 1 TABLET ORALLY EVERY MORNING NOT-TAKING CYANOCOBALAMIN 1000 MCG TABLET 1 TABLET ORALLY ONCE A DAY NOT-TAKING FAMOTIDINE 20 MG TABLET 1 TAB ORALLY BID NOT-TAKING TAMIFLU 75 MG CAPSULE 1 CAPSULE ORALLY DAILY MEDICATION LIST REVIEWED AND RECONCILED WITH THE PATIENT PAST MEDICAL HISTORY LUMBAR SPONDYLOSIS- SP L5/S1 FUSION, 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 CHEVY DEUTSCH) EGD (NORMAL)/COLONOSCOPY MILD DIVERTICULOSIS), DUODENAL BIOPSY NEGATIVE. (DR. AGUIRRE) 06/2012 LEFT KNEE REPLACEMENT 2005 RIGHT KNEE REPLACEMENT 2010 PELVIC FLOOR RECONSTRUCTION SECONDARY TO BLADDER PROLAPSE/HYSTERECTOMY 2009 CYSTOSCOPY FOR MICROSCOPIC HEMATURIA - NORMAL (DR. PEREZ 09/2012 EGD - NORMAL (PREVIOUS ULCERATIONS HEALED) COLONOSCOPY - TUBULAR ADENOMAS, DIVERTICULOSIS - MILD, HEMORRHOIDS 2008 EGD - GASTRIC AND DUDENAL ULCER - NEGATIVE H. PYLORI, BIOPSY NEGATIVE FOR MALIGNANCY, DOUDENITIS/GASTRITIS 2007 HYSTERECTOMY 2009 BILATERAL CATARACT SURGERY 2019 FAMILY HISTORY FATHER: MOTHER: 84 YRS, HEART ATTACK SIBLINGS: ALIVE, ONE SISTER FROM BREAST CANCER. DAUGHTER(S): LUPUS - POSSIBLE KIDNEY ISSUES RELATED TO DISEASE PROCESS. 2 SISTER(S) . 1 SON(S) , 2 DAUGHTER(S) . NO KNOWN FAMILY HX OF UROLOGIC CANCERS/DISEASES. DENIES ANY FAMILY HX SKIN CANCER OR PANCREATIC CANCER 1 SISTER FROM CANCER SON 2 YEARS FROM HEART ISSUES. SOCIAL HISTORY GENERAL: TOBACCO USE ARE YOU A:NONSMOKER LATEX QUESTIONNAIRE LATEX ALLERGY : HAVE YOU EVER DEVELOPED ANY TYPE OF REACTION AFTER HANDLING LATEX PRODUCTS SUCH RUBBER GLOVES, CONDOMS, DIAPHRAGMS, BALLOONS, SOCKS, OR UNDERWEAR?NO LATEX ALLERGY : HAVE YOU EVER DEVELOPED ANY TYPE OF REACTION DURING OR AFTER DENTAL APPOINTMENT, VAGINAL/RECTAL EXAMINATION, SURGICAL PROCEDURE, OR ANY OTHER EXPOSURE?NO LATEX RISK : HAVE YOU EVER HAD ANY DIFFICULTY BREATHING OR HIVES AFTER EATING OR HANDLING ANY FRUITS, OR VEGETABLES; SUCH KIWI, BANANAS, STONE FRUITS, OR CHESTNUTSNO LATEX RISK : DO YOU HAVE A PREVIOUS PERSONAL HISTORY OF MORE THAN NINE SURGERIES, SPINA BIFIDA, OR REPEATED CATHERIZATIONS? NO LATEX RISK : ARE YOU FREQUENTLY EXPOSED TO LATEX PRODUCTS IN YOUR OCCUPATION?NO DATE ASKED : 02/15/2020 ALCOHOL SCREENING DID YOU HAVE A DRINK CONTAINING ALCOHOL IN THE PAST YEAR?YES HOW OFTEN DID YOU HAVE SIX OR MORE DRINKS ON ONE OCCASION IN THE PAST YEAR?NEVER (0 POINTS) HOW MANY DRINKS DID YOU HAVE ON A TYPICAL DAY WHEN YOU WERE DRINKING IN THE PAST YEAR?1 OR 2 (0 POINTS) HOW OFTEN DID YOU HAVE A DRINK CONTAINING ALCOHOL IN THE PAST YEAR?MONTHLY OR LESS (1 POINT) POINTS1 INTERPRETATIONNEGATIVE RECREATIONAL DRUG USE DENIES. CAFFEINE 1-2/DAY. SEXUAL HX HAD SEX IN THE LAST 12 MONTHS (VAGINAL, ORAL, OR ANAL)?NO HAVE YOU EVER HAD AN STD?NO ROMAN CATHOLIC NO PRESYBETERIAN BELIEFS THAT WOULD IMPACT HEALTH CARE. LANGUAGE ARABIC. EDUCATION LEVEL OF EDUCATION:HIGH SCHOOL LEARNING BARRIERS / SPECIAL NEEDS BARRIERS TO LEARNING?NO HEARING IMPAIRED?NO VISION IMPAIRED?YES COGNITIVELY IMPAIRED?NO :CORRECTIVE LENSES READINESS TO LEARN?YES LEARNING PREFERENCES?NO LEARNING CAPABILITIES PRESENT?YES EMOTIONAL BARRIERS?NO SPECIAL DEVICES?NO STRETCH BOX TENDER NEEDED?NO DOMESTIC VIOLENCE DO YOU FEEL SAFE IN YOUR ENVIRONMENT?YES OCCUPATION: RETIRED. DIET: REGULAR. EXERCISE: BIKES. MARITAL STATUS: .. OTHERS AT HOME: NONE. PAIN CLINIC PFS, CLERGY, PUBLIC HEALTH REFERRALS PFS REFERRAL NEEDED?NO CLERGY REFERRAL NEEDED?NO PUBLIC HEALTH REFERRAL NEEDED?NO WAS THE PROVIDER NOTIFIED OF ANY PERTINENT INFO?NO HAS THE PATIENT BEEN EDUCATED REGARDING HIS/HER PLAN OF CARE?YES PLEASE DOCUMENT ANY ADDTIONAL DETAILS.PLEASE FREE TEXT IN THE NOTES SECTION. HAS THE PATIENT BEEN EDUCATED REGARDING PAIN, THE RISK FOR PAIN, THE IMPORTANCE OF EFFECTIVE PAIN MANAGEMENT, AND THE PAIN ASSESSMENT PROCESS?YES HOUSING: RENTS APARTMENT. ADVANCE DIRECTIVE ADVANCE DIRECTIVE DISCUSSED WITH PATIENT:YES PT DOES NOT HAVE ANY ADVANCED DIRECTIVES AND SHE DECLINES INFORMATION ON HCP AT THIS TIME. HOSPITALIZATION/MAJOR DIAGNOSTIC PROCEDURE SURGICAL RELATED ANEMIA 2008 CHILDBIRTH VITAL SIGNS WT 147.2 LBS, HT 64 IN, BMI 25.26 INDEX, BP 137/63 MM HG, HR 75 /MIN, RR 18 /MIN, TEMP 97.0 F, OXYGEN SAT % 98%, SAFE IN ENV? (Y/N) YES, NA INITIALS AW 1023, REVIEWED BY: LS. EXAMINATION GENERAL EXAMINATION: THE PATIENT IS ALERT, ORIENTED TIMES THREE AND COOPERATIVE. HEART SHOWS REGULAR RHYTHM, NO MURMURS AND NO GALLOPS. LUNGS ARE CLEAR TO AUSCULTATION. ASSESSMENTS SACROILIITIS - M46.1 (PRIMARY) SACROILIAC JOINT DYSFUNCTION - M53.3 TREATMENT SACROILIITIS [facility] FL[facility] GUIDANCE (PAIN)[id number] PROCEDURES PAIN NURSING RECORD PRE-PROCEDURE IV SITE N/A, PRE-PROCEDURE ORAL MEDICATIONS VALIUM 5 MG PO, HYDROCODONE/ACETAMINOPHEN 5/325 PO, ZOFRAN 4 MG SL GIVEN AT 02/18/20 1034. INSTRUCTED PT THAT MEDICATIONS COULD CAUSE DIZZINESS AND SLEEPINESS AND TO EXERCISE CAUTION WITH ALL ACTIVITIES TODAY. Julio Cesar WERNER RN PROCEDURE IN ROOM 1040, PHYSICIAN IN ROOM 1058, START 1059, STEROID KENALOG, O2 RA, ECG NORMAL SINUS, PATIENT SHIELDED YES, SAFETY STRAP YES, PREP CHLOROPREP STERILE TRAY AND PREP DONE BY Maximiliano CARRION RN., IV INFUSED N/A, DRESSING TEGADERM LOC: 1. ALERT, ORIENTED RESP: 1. REGULAR, NO DYSPNEA COLOR: 1. PINK SKIN: 1. WARM, DRY POSITION: 1. PRONE VITALS: 1050 153/74 88-16 98% 1055 122/71 85-16 96% 1108 110/68 84-16 95% 1117 129/66 77-16 98% DISCHARGE: POST PAIN 0/10, DRESSING SITE DRY AND INTACT, IV N/A, GAIT STEADY, TEACHING COMPLETED, PATIENT ACKNOWLEDGES UNDERSTANDING YES, PATIENT DISCHARGED AT 1124 PN SI PRE PROCEDURE DIAGNOSIS SACROILIITIS, SACROILIAC JOINT DYSFUNCTION POST PROCEDURE DIAGNOSIS SACROILIITIS, SACROILIAC JOINT DYSFUNCTION PROCEDURE BILATERAL SACROILIAC JOINT BLOCK SURGEON DR. PIETRO RESENDIZ MULTIPLE WIRE SAWYER NONE ANESTHESIA LOCAL PRE PROCEDURE NOTE THE PATIENT WITH HISTORY OF CHRONIC LOW BACK PAIN. I EVALUATED THE PATIENT AND REVIEWED THE CHART. I WENT OVER THE RISKS, ALTERNATIVES, AND BENEFITS ASSOCIATED WITH THIS PROCEDURE. I DISCUSSED THAT THE USE OF STEROIDS MAY CONTRIBUTE TO IMMUNOSUPPRESSION OF THE PATIENT'S BODY AGAINST INFECTIONS SUCH COVID-19. THE PATIENT IS AWARE OF THE POTENTIAL COMPLICATIONS ASSOCIATED WITH THIS VIRUS, INCLUDING, BUT NOT LIMITED TO, . I DISCUSSED THE USE OF DEXAMETHASONE INSTEAD OF KENALOG; HOWEVER, THE PATIENT WOULD LIKE TO MOVE FORWARD WITH KENALOG. THE PATIENT WOULD LIKE TO PROCEED AND GAVE CONSENT TO PERFORM THE PROCEDURE. THE PATIENT DENIES UNEXPLAINABLE WEIGHT LOSS, FEVER, CHILLS, OR NEW CHANGES IN URINARY OR BOWEL CONTROL. THE PATIENT IS COVID-19 NEGATIVE DESCRIPTION OF PROCEDURE THE PATIENT WAS BROUGHT TO THE PROCEDURE ROOM AND PLACED IN THE PRONE POSITION. THE LUMBOSACRAL AREA WAS CLEANED WITH CHLORAPREP SOLUTION AND DRAPED ASEPTICALLY. THE PROCEDURE WAS DONE UNDER STERILE CONDITIONS. I CHECKED LATERALITY AND THE LEVEL WHERE THE PROCEDURE WAS GOING TO BE PERFORMED WITH THE PATIENT AND THE SUPPORTING STAFF AT THE MOMENT OF THE TIME OUT IN THE PROCEDURE ROOM. UNDER FLUOROSCOPIC GUIDANCE, TARGET POINT WAS SELECTED AT THE LOWER BORDER OF THE RIGHT AND LEFT SACROILIAC JOINT. TARGET POINT WAS SELECTED AFTER MEDIAL ROTATION AND TILT OF THE MAGNIFIER OF THE C-ARM. LIDOCAINE WAS USED TO NUMB THE SKIN AND SUBCUTANEOUS TISSUE BELOW IT. A SPINAL NEEDLE, 22-GAUGE, WAS ADVANCED UNDER FLUOROSCOPIC GUIDANCE AND FOLLOWING PATIENT FEEDBACK UNTIL THE TARGET AREA WAS TOUCHED. THE POSITION OF THE NEEDLE WAS VERIFIED WITH AP AND LATERAL VIEWS. AFTER PROPER POSITION OF THE NEEDLE WAS ACHIEVED, ISOVUE M DYE 30%, 0.25 ML, WAS INJECTED SHOWING SPREAD OF THE DYE. THEN, A SOLUTION OF 20 MG OF KENALOG WAS INJECTED IN EACH JOINT WITH 3 ML OF BUPIVACAINE 0.125%. THERE WAS NO EVIDENCE OF BLOOD, PARESTHESIA OR CEREBROSPINAL FLUID DURING THE PROCEDURE. THE PATIENT WAS SENT TO THE RECOVERY ROOM. THE PATIENT WAS MOVING THE EXTREMITIES AND DOING WELL. THERE WAS NO COMPLICATION DURING THE PROCEDURE. EBL LESS THAN 5 ML FLUOROSCOPY TIME WAS 20 SECONDS POST PROCEDURE NOTE THE PROCEDURE DONE WAS DISCUSSED WITH THE PATIENT. THE PATIENT WILL BE SEEN IN A FOLLOW UP IN THE NEXT FEW WEEKS. I AM LOOKING FOR LONG LASTING PAIN RELIEF FOR THE PATIENT WITH THIS INTERVENTION. INSTRUCTIONS WERE GIVEN, QUESTIONS WERE ANSWERED, AND THE PATIENT EXPRESSED UNDERSTANDING AND AGREES WITH THE PLAN. THE PATIENT IS AWARE TO STAY HOME FOR THE NEXT WEEK, IF POSSIBLE, DUE TO COVID-19. I, IVORY COULTER, DOCUMENTED THE ABOVE INFORMATION ACTING A SCRIBE FOR DR. RESENDIZ. I HAVE REVIEWED THE ABOVE DOCUMENT, WRITTEN BY IVORY COULTER, REPAIRER WELDING EQUIPMENT, AND I VERIFY THAT IT IS ACCURATE PROCEDURE CODES 47846 INJECT SACROILIAC JOINT, MODIFIERS: 50 DISPOSITION & COMMUNICATION FOLLOW UP F/UP WITH MAINTENANCE ENGINEER OIL FIELD (REASON: POST SIJ BRANNON) ELECTRONICALLY SIGNED BY PIETRO RESENDIZ MD, MD ON 02/18/2020 AT 04:55 PM EDT DISCLAIMER : THIS IS A VISIT SUMMARY EXTRACTED FROM THE [employer] CHART. IT IS NOT A COPY OF THE [employer] PROGRESS NOTE. JUAN
== END ==
LOC: M PAIN 10:15
PROVIDERS: ATTEND Anesthesiology
DX: M46.1 Sacroiliitis, not elsewhere classified (principal); M53.3 Sacrococcygeal disorders, not elsewhere classified
CPT/HCPCS: G0260; J3301; Q0162; Q9967

== ENCOUNTER → 2020-03-28 | Outpatient (POV) | payer MEDICARE ==
[~2020-03-28] MED LIST changes: -BUPIVACAINE HCL 0.25% 30ML VIAL As Ordered ONE; -ISOVUE-M 300 61% 15ML VIAL As Ordered ONE; -LIDOCAINE 1% SDV 30ML VIAL As Ordered ONE; -NORCO, ANEXSIA 5/325MG TABLET (HYDROcodone/ACETAMINOPHEN) As Ordered ONE; -ONDANSETRON 4 MG ORAL DISINTEGRATING TAB As Ordered ONE; -TRIAMCINOLONE ACETONIDE SUSP 40 MG/ML VIAL (J3301) As Ordered ONE; -diazePAM 5 MG TAB As Ordered ONE
== END ==
LOC: M PAIN 10:00
PROVIDERS: ATTEND Nurse Practitioner Family
DX: M46.1 Sacroiliitis, not elsewhere classified (principal)

== ENCOUNTER → 2020-10-07 | Outpatient (REF) | payer MEDICARE ==
[2020-10-07 14:32] LABS: ALBUMIN 3.7 GM/DL (3.2-5.2); BILIRUBIN,TOTAL 0.3 MG/DL (0.2-1.0); CALCIUM LEVEL 8.9 MG/DL (8.8-10.2); CREATININE FOR GFR 1.28 MG/DL (0.55-1.30); GLOMERULAR FILTRATION RATE 43.4 (>39); MAGNESIUM LEVEL 2.1 MG/DL (1.8-2.4); POTASSIUM SERUM 4.9 MEQ/L (3.5-5.1); TOTAL PROTEIN 6.5 GM/DL (6.4-8.2)
[2020-10-07 15:39] LABS: TOTAL 25(OH) VITAMIN D 81.7 NG/ML (30.0-100.0)
== END ==
LOC: M PLALAB 09:36
PROVIDERS: ATTEND Family Medicine
DX: I10 Essential (primary) hypertension (principal); M81.0 Age-related osteoporosis without current pathological fracture; E53.8 Deficiency of other specified B group vitamins

== ENCOUNTER → 2020-12-05 | Outpatient (REF) | payer MEDICARE ==
[2020-12-05 18:13] LABS: HEMATOCRIT 35.5 % (36.0-47.0); HEMOGLOBIN 11.1 g/dl (12.0-15.5); LYMPH # 1.7 10^3/uL (1.5-5.0); LYMPH % 26.1 % (24.0-44.0); MEAN CORPUSCULAR HEMOGLOBIN 29.6 pg (27.0-33.0); MEAN CORPUSCULAR HGB CONC 31.3 g/dl (32.0-36.5); MEAN CORPUSCULAR VOLUME 94.7 fl (80.0-96.0); MONO # 0.5 10^3/uL (0.0-0.8); MONO % 7.6 % (2.0-8.0); NEUTROPHILS # 4.3 10^3/uL (1.5-8.5); NEUTROPHILS % 65.4 % (36.0-66.0); PLATELET COUNT, AUTOMATED 337 10^3/uL (150-450); RED BLOOD COUNT 3.75 10^6/uL (4.00-5.40); WHITE BLOOD COUNT 6.6 10^3/uL (4.0-10.0)
[2020-12-05 18:15] LABS: HEMATOCRIT 35.5 % (36.0-47.0)
[2020-12-05 18:36] LABS: ALBUMIN 3.7 GM/DL (3.2-5.2); BILIRUBIN,TOTAL 0.2 MG/DL (0.2-1.0); CALCIUM LEVEL 9.2 MG/DL (8.8-10.2); CREATININE FOR GFR 1.28 MG/DL (0.55-1.30); GLOMERULAR FILTRATION RATE 43.4 (>39); PERCENT SATURATION 14.8 % (13.2-45.0); POTASSIUM SERUM 4.1 MEQ/L (3.5-5.1); TOTAL PROTEIN 6.5 GM/DL (6.4-8.2)
== END ==
LOC: M PLALAB 14:54
PROVIDERS: ATTEND Family Medicine
DX: I10 Essential (primary) hypertension (principal); D75.89 Other specified diseases of blood and blood-forming organs; E53.8 Deficiency of other specified B group vitamins; D50.9 Iron deficiency anemia, unspecified

== ENCOUNTER → 2020-12-10 | Outpatient (CLI) | payer MEDICARE ==
--- NOTE | 2020-12-10 10:48 | REPMRS ---
Patient History The patient states she has not had a clinical breast exam in over a year. Patient is postmenopausal. Family history of breast cancer at age 58 in sister. 3D TOMOSYNTHESIS WAS PERFORMED. [facility] lifetime risk for breast cancer is 6.2%. Volpara breast density b. Digital Woman Screen Mammo: December 10, 2020 - Exam #: [id number] Bilateral CC and MLO view(s) were taken. Technologist: Kathe Soto, Technologist Prior study comparison: October 12, 2019, bilateral digital woman screen mammo performed at [facility]. FINDINGS: There are scattered fibroglandular densities. There has been no change in the appearance of the mammogram from the prior studies. There is a mild amount of residual fibroglandular tissue which is fairly symmetric. There is no interval development of dominant mass, architectural distortion, or clustered microcalcification suggestive of malignancy. Assessment: BI-RADS/ACR category 1 mammogram. Negative Mammogram. Recommendation Routine screening mammogram in 1 year (for women over age 40). This mammogram was interpreted with the aid of an FDA-approved computer-aided dectection system. Electronically Signed By: Feroz Briseno MD 12/10/20 [id number]
== END ==
LOC: M WHC 09:15
PROVIDERS: ATTEND Family Medicine
DX: Z12.31 Encounter for screening mammogram for malignant neoplasm of breast (principal); Z80.3 Family history of malignant neoplasm of breast

== ENCOUNTER → 2021-02-25 | Outpatient (CLI) | payer MEDICARE ==
[2021-02-25 17:22] LABS: HEMATOCRIT 33.4 % (36.0-47.0); HEMOGLOBIN 10.7 g/dl (12.0-15.5); LYMPH # 1.4 10^3/uL (1.5-5.0); LYMPH % 27.7 % (24.0-44.0); MEAN CORPUSCULAR HEMOGLOBIN 29.7 pg (27.0-33.0); MEAN CORPUSCULAR VOLUME 92.8 fl (80.0-96.0); MONO # 0.3 10^3/uL (0.0-0.8); MONO % 6.6 % (2.0-8.0); NEUTROPHILS # 3.3 10^3/uL (1.5-8.5); NEUTROPHILS % 65.3 % (36.0-66.0); PLATELET COUNT, AUTOMATED 286 10^3/uL (150-450)
[2021-02-25 18:15] LABS: ERYTHROCYTE SEDIMENTATION RATE 21 mm/hr (0-30)
[2021-02-25 18:41] LABS: ALBUMIN 3.6 GM/DL (3.2-5.2); ALT/SGPT 16 U/L (12-78); BILIRUBIN,TOTAL 0.3 MG/DL (0.2-1.0); BLOOD UREA NITROGEN 20 MG/DL (7-18); C REACTIVE PROTEIN QUANTITATIV 0.35 MG/DL (0.00-0.30); CARBON DIOXIDE LEVEL 27 MEQ/L (21-32); CHLORIDE LEVEL 110 MEQ/L (98-107); CREATININE FOR GFR 1.19 MG/DL (0.55-1.30); GLOMERULAR FILTRATION RATE 47.1 (>39); GLUCOSE, FASTING 90 MG/DL (70-100); IMMUNOGLOBULIN E 6.2 IU/ML (<100); NT-PRO BNP 480 PG/ML (<450); POTASSIUM SERUM 4.6 MEQ/L (3.5-5.1); SODIUM LEVEL 143 MEQ/L (136-145); THYROGLOBULIN ANTIBODY < 15.0 U/ML (<60.0); THYROID PEROXIDASE ANTIBODY 34.4 U/ML (<60.0); TOTAL PROTEIN 6.3 GM/DL (6.4-8.2)
[2021-03-04 17:07] LABS: ANA (HEP2) Negative (.); ANTI DS-DNA AB Negative (Negative); IGE RECEPTOR ABY 1 >50.0 (<10)
== END ==
LOC: M PLALAB 15:03
PROVIDERS: ATTEND Family Medicine
DX: L50.8 Other urticaria (principal); Z79.899 Other long term (current) drug therapy
CPT/HCPCS: 36415; 80053; 82785; 83880; 84439; 84443; 85025; 85652; 86038; 86140; 86225; 86352; 86376; 86800; G0463

== ENCOUNTER → 2021-03-10 | Outpatient (REF) | payer MEDICARE ==
[2021-03-10 20:02] LABS: BASO % 0.1 % (0.0-1.0); HEMATOCRIT 35.2 % (36.0-47.0); HEMOGLOBIN 11.3 g/dl (12.0-15.5); LYMPH # 1.7 10^3/uL (1.5-5.0); LYMPH % 16.3 % (24.0-44.0); MEAN CORPUSCULAR HEMOGLOBIN 29.6 pg (27.0-33.0); MEAN CORPUSCULAR HGB CONC 32.1 g/dl (32.0-36.5); MEAN CORPUSCULAR VOLUME 92.1 fl (80.0-96.0); MONO # 0.5 10^3/uL (0.0-0.8); MONO % 4.9 % (2.0-8.0); NEUTROPHILS # 8.2 10^3/uL (1.5-8.5); NEUTROPHILS % 78.2 % (36.0-66.0); PLATELET COUNT, AUTOMATED 359 10^3/uL (150-450); RED BLOOD COUNT 3.82 10^6/uL (4.00-5.40); WHITE BLOOD COUNT 10.5 10^3/uL (4.0-10.0)
[2021-03-10 20:31] LABS: CREATININE FOR GFR 1.56 MG/DL (0.55-1.30); GLOMERULAR FILTRATION RATE 34.4 (>39); MAGNESIUM LEVEL 2.3 MG/DL (1.8-2.4); PERCENT SATURATION 16.3 % (13.2-45.0); PHOSPHORUS LEVEL 3.1 MG/DL (2.5-4.9); POTASSIUM SERUM 3.5 MEQ/L (3.5-5.1)
== END ==
LOC: M WUC 19:15
PROVIDERS: ATTEND Family Medicine
DX: I10 Essential (primary) hypertension (principal)
CPT/HCPCS: 80069; 82728; 83550; 83735; 83880; 85025; G0463

== ENCOUNTER → 2021-04-17 | Outpatient (CLI) | payer MEDICARE ==
[2021-04-17 15:20] LABS: BASO % 0.1 % (0.0-1.0); EOS # 0.1 10^3/uL (0.0-0.5); EOS % 0.4 % (0.0-3.0); HEMATOCRIT 38.6 % (36.0-47.0); HEMOGLOBIN 12.5 g/dl (12.0-15.5); LYMPH # 3.4 10^3/uL (1.5-5.0); LYMPH % 28.9 % (24.0-44.0); MEAN CORPUSCULAR HGB CONC 32.4 g/dl (32.0-36.5); MEAN CORPUSCULAR VOLUME 92.8 fl (80.0-96.0); MONO # 0.7 10^3/uL (0.0-0.8); NEUTROPHILS # 7.6 10^3/uL (1.5-8.5); PLATELET COUNT, AUTOMATED 417 10^3/uL (150-450); RED BLOOD COUNT 4.16 10^6/uL (4.00-5.40); WHITE BLOOD COUNT 11.9 10^3/uL (4.0-10.0)
[2021-04-17 15:48] LABS: ALBUMIN 3.6 GM/DL (3.2-5.2); BILIRUBIN,TOTAL 0.3 MG/DL (0.2-1.0); CALCIUM LEVEL 9.3 MG/DL (8.8-10.2); CREATININE FOR GFR 1.77 MG/DL (0.55-1.30); GLOMERULAR FILTRATION RATE 29.8 (>39); POTASSIUM SERUM 3.9 MEQ/L (3.5-5.1); TOTAL PROTEIN 6.4 GM/DL (6.4-8.2)
== END ==
LOC: M PLALAB 14:10
PROVIDERS: ATTEND Family Medicine
DX: E53.8 Deficiency of other specified B group vitamins (principal); I10 Essential (primary) hypertension

== ENCOUNTER → 2021-05-08 | Outpatient (CLI) | payer MEDICARE ==
--- NOTE | 2021-05-08 08:44 | REP ---
INDICATION: CKD 3A. COMPARISON: Comparison sonography May 23, 2012. TECHNIQUE: Urinary tract ultrasound with renal artery Doppler assessment: FINDINGS: Scanning at the level of the urinary bladder shows no abnormality. Renal cortical echogenicity pattern is normal bilaterally and contours are smooth. There is no evidence of hydronephrosis, cyst, mass, or calculus in either kidney. The right kidney measures 9.1 x 4.1 x 3.5 cm. Left renal dimensions are 9.2 x 3.5 x 4.5 cm. Doppler data: Peak systolic flow velocity in the abdominal aorta at the level of the main renal arteries is normal, recorded at 49 centimeters/second. Peak systolic flow velocity in the right main renal artery is 84 centimeters/second and that in the left main renal artery is 74 centimeters/second. These values are normal. A renal to aortic flow velocity ratios are therefore normal, 1.7 on the right and 1.5 on the left. Resistive indices and acceleration times are measured in the intralobar arteries of the upper, mid, and lower pole of each kidney. These values are normal bilaterally. IMPRESSION: Normal urinary tract sonography. There is no evidence to suggest renal artery stenosis. <Electronically signed by Michael Corona > 05/08/21 [id number]
== END ==
LOC: M RAD 07:32
PROVIDERS: ATTEND Family Medicine
DX: N18.31 Chronic kidney disease, stage 3a (principal)

== ENCOUNTER 2021-05-17 08:22 | Emergency (ER) | payer MEDICARE ==
[~2021-05-17] VITALS: Ht 162.6 cm; Wt 63.2 kg
--- NOTE | 2021-05-17 09:52 | REP ---
INDICATION: fall. COMPARISON: Right foot x-ray, 06/04/2007. TECHNIQUE: Four views of the right foot were obtained. FINDINGS: There is a nondisplaced transverse fracture of the base of the 5th metatarsal. 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 There is a small plantar spur. IMPRESSION: 1. Fracture of the base of the 5th metatarsal. 2. Multifocal arthropathy, as described. 3. There is a small plantar spur. Incidental Findings: Base of 5th metatarsal fracture. The critical information above was relayed directly by me by telephone to Rosendo Gibson on 05/17/2021 at 9:48 am with readback verification. <Electronically signed by Calvin Andrade > 05/17/21 [id number]
[2021-05-17] MEDS ORDERED: ACETAMINOPHEN 325 MG TAB PO ONE (11:10)
[2021-05-17 11:48] VITALS: BP 137/72
== END 2021-05-17 11:56 | disposition home or self-care (01) ==
LOC: M ED 08:22
DX: S92.354A Nondisplaced fracture of fifth metatarsal bone, right foot, initial encounter for closed fracture (principal); W18.40XA Slipping, tripping and stumbling without falling, unspecified, initial encounter; Y92.9 Unspecified place or not applicable; Y93.9 Activity, unspecified; Y99.9 Unspecified external cause status; Z88.0 Allergy status to penicillin

== ENCOUNTER → 2021-05-26 | Outpatient (CLI) | payer MEDICARE ==
[2021-05-26 13:26] LABS: BASO % 0.3 % (0.0-1.0); EOS # 0.3 10^3/uL (0.0-0.5); EOS % 2.5 % (0.0-3.0); HEMOGLOBIN 12.1 g/dl (12.0-15.5); LYMPH # 1.6 10^3/uL (1.5-5.0); LYMPH % 16.5 % (24.0-44.0); MEAN CORPUSCULAR HEMOGLOBIN 29.4 pg (27.0-33.0); MEAN CORPUSCULAR HGB CONC 31.8 g/dl (32.0-36.5); MEAN CORPUSCULAR VOLUME 92.5 fl (80.0-96.0); MONO # 0.9 10^3/uL (0.0-0.8); MONO % 8.7 % (2.0-8.0); NEUTROPHILS # 7.1 10^3/uL (1.5-8.5); NEUTROPHILS % 71.6 % (36.0-66.0); PLATELET COUNT, AUTOMATED 379 10^3/uL (150-450); RED BLOOD COUNT 4.11 10^6/uL (4.00-5.40)
[2021-05-26 13:56] LABS: ALBUMIN 3.7 GM/DL (3.2-5.2); BILIRUBIN,TOTAL 0.4 MG/DL (0.2-1.0); CALCIUM LEVEL 9.5 MG/DL (8.8-10.2); CREATININE FOR GFR 1.78 MG/DL (0.55-1.30); GLOMERULAR FILTRATION RATE 29.6 (>39); MAGNESIUM LEVEL 2.1 MG/DL (1.8-2.4); POTASSIUM SERUM 3.4 MEQ/L (3.5-5.1); TOTAL PROTEIN 6.6 GM/DL (6.4-8.2)
== END ==
LOC: M PLALAB 10:26
PROVIDERS: ATTEND Family Medicine
DX: E53.8 Deficiency of other specified B group vitamins (principal); N18.31 Chronic kidney disease, stage 3a; I12.9 Hypertensive chronic kidney disease with stage 1 through stage 4 chronic kidney disease, or unspecified chronic kidney disease

== ENCOUNTER → 2021-07-31 | Outpatient (CLI) | payer MEDICARE ==
[2021-07-31 15:57] LABS: TOTAL PROTEIN,RANDOM URINE < 5.0 MG/DL (0.0-12.0)
[2021-07-31 16:01] LABS: ALBUMIN 3.3 GM/DL (3.2-5.2); BLOOD UREA NITROGEN 28 MG/DL (7-18); CALCIUM LEVEL 8.9 MG/DL (8.8-10.2); CARBON DIOXIDE LEVEL 32 MEQ/L (21-32); CHLORIDE LEVEL 106 MEQ/L (98-107); CREATININE FOR GFR 1.78 MG/DL (0.55-1.30); FERRITIN 53 NG/ML (8-252); GLOMERULAR FILTRATION RATE 29.6 (>39); GLUCOSE, FASTING 102 MG/DL (70-100); NT-PRO BNP 342 PG/ML (<450); PHOSPHORUS LEVEL 3.2 MG/DL (2.5-4.9); POTASSIUM SERUM 3.6 MEQ/L (3.5-5.1); SODIUM LEVEL 142 MEQ/L (136-145)
[2021-07-31 16:07] LABS: PTH INTACT 51.8 PG/ML (18.5-88.0); TOTAL 25(OH) VITAMIN D 36.8 NG/ML (30.0-100.0)
== END ==
LOC: M PLALAB 13:37
PROVIDERS: ATTEND Family Medicine
DX: E55.9 Vitamin D deficiency, unspecified (principal); D75.89 Other specified diseases of blood and blood-forming organs; I10 Essential (primary) hypertension

== ENCOUNTER → 2021-11-06 | Outpatient (CLI) | payer MEDICARE ==
[2021-11-06 14:50] LABS: BASO % 0.2 % (0.0-1.0); EOS % 0.2 % (0.0-3.0); HEMATOCRIT 34.5 % (36.0-47.0); HEMOGLOBIN 11.1 g/dl (12.0-15.5); LYMPH # 1.4 10^3/uL (1.5-5.0); LYMPH % 23.7 % (24.0-44.0); MEAN CORPUSCULAR HEMOGLOBIN 29.8 pg (27.0-33.0); MEAN CORPUSCULAR HGB CONC 32.2 g/dl (32.0-36.5); MEAN CORPUSCULAR VOLUME 92.7 fl (80.0-96.0); MONO # 0.4 10^3/uL (0.0-0.8); MONO % 7.5 % (2.0-8.0); NEUTROPHILS % 68.2 % (36.0-66.0); PLATELET COUNT, AUTOMATED 308 10^3/uL (150-450); RED BLOOD COUNT 3.72 10^6/uL (4.00-5.40); WHITE BLOOD COUNT 5.9 10^3/uL (4.0-10.0)
[2021-11-06 17:24] LABS: ALBUMIN 3.7 GM/DL (3.2-5.2); BILIRUBIN,TOTAL 0.2 MG/DL (0.2-1.0); C REACTIVE PROTEIN QUANTITATIV 0.58 MG/DL (0.00-0.30); CALCIUM LEVEL 9.4 MG/DL (8.8-10.2); CHOLESTEROL RISK RATIO 3.868 (<5); CREATININE FOR GFR 1.47 MG/DL (0.55-1.30); FREE T4 0.91 NG/DL (0.76-1.46); GLOMERULAR FILTRATION RATE 36.9 (>39); IMMUNOGLOBULIN A 52.7 MG/DL (70-400); IMMUNOGLOBULIN M 19.2 MG/DL (40-230); POTASSIUM SERUM 3.8 MEQ/L (3.5-5.1); THYROID STIMULATING HORMONE 2.27 uIU/ML (0.358-3.740); TOTAL PROTEIN 6.2 GM/DL (6.4-8.2)
== END ==
LOC: M PLALAB 11:28
PROVIDERS: ATTEND Family Medicine
DX: Z00.00 Encounter for general adult medical examination without abnormal findings (principal); I12.9 Hypertensive chronic kidney disease with stage 1 through stage 4 chronic kidney disease, or unspecified chronic kidney disease; D75.89 Other specified diseases of blood and blood-forming organs; E78.2 Mixed hyperlipidemia; L50.8 Other urticaria; E53.8 Deficiency of other specified B group vitamins; N18.31 Chronic kidney disease, stage 3a; F43.21 Adjustment disorder with depressed mood; F51.04 Psychophysiologic insomnia; M81.0 Age-related osteoporosis without current pathological fracture; K21.00 Gastro-esophageal reflux disease with esophagitis, without bleeding; E55.9 Vitamin D deficiency, unspecified; K27.9 Peptic ulcer, site unspecified, unspecified as acute or chronic, without hemorrhage or perforation; Z12.39 Encounter for other screening for malignant neoplasm of breast; Z12.11 Encounter for screening for malignant neoplasm of colon; I87.2 Venous insufficiency (chronic) (peripheral)

== ENCOUNTER → 2021-11-24 | Outpatient (REF) | payer MEDICARE ==
[2021-11-24 13:05] LABS: APPEARANCE, URINE CLOUDY (CLEAR); BACTERIA, URINE AUTO 1+ (NEGATIVE); BILIRUBIN, URINE AUTO NEGATIVE (NEGATIVE); BLOOD, URINE BLOOD 2+ (NEGATIVE); COLOR, URINE YELLOW (YELLOW); GLUCOSE, URINE (UA) AUTO NEGATIVE (NEGATIVE); KETONE, URINE AUTO NEGATIVE (NEGATIVE); LEUKOCYTE ESTERASE, URINE AUTO 3+ (NEGATIVE); NITRITE, URINE AUTO NEGATIVE (NEGATIVE); PROTEIN, URINE AUTO NEGATIVE (NEGATIVE); RBC, URINE AUTO 30 /HPF (0-3); SPECIFIC GRAVITY URINE AUTO 1.013 (1.002-1.035); SQUAMOUS EPITHELIAL CELL UR AU 2 /HPF (0-6); UROBILINOGEN, URINE AUTO 0.2 mg/dL (0.0-2.0); WBC, URINE AUTO TNTC /HPF (0-3)
== END ==
LOC: M LAB REF 12:31
PROVIDERS: ATTEND Physician Assistant Medical
DX: R30.0 Dysuria (principal)

== ENCOUNTER → 2022-04-19 | Outpatient (CLI) | payer MEDICARE ==
[2022-04-19 15:34] LABS: HEMATOCRIT 36.8 % (36.0-47.0)
[2022-04-19 15:41] LABS: EOS # 0.1 10^3/uL (0.0-0.5); EOS % 0.9 % (0.0-3.0); HEMATOCRIT 37.1 % (36.0-47.0); HEMOGLOBIN 11.7 g/dl (12.0-15.5); LYMPH # 1.5 10^3/uL (1.5-5.0); LYMPH % 22.2 % (24.0-44.0); MEAN CORPUSCULAR HEMOGLOBIN 29.3 pg (27.0-33.0); MEAN CORPUSCULAR HGB CONC 31.5 g/dl (32.0-36.5); MONO # 0.5 10^3/uL (0.0-0.8); MONO % 7.6 % (2.0-8.0); NEUTROPHILS # 4.6 10^3/uL (1.5-8.5); PLATELET COUNT, AUTOMATED 336 10^3/uL (150-450); RED BLOOD COUNT 3.99 10^6/uL (4.00-5.40); WHITE BLOOD COUNT 6.7 10^3/uL (4.0-10.0)
[2022-04-19 16:35] LABS: ALBUMIN 3.9 GM/DL (3.2-5.2); BILIRUBIN,TOTAL 0.2 MG/DL (0.2-1.0); CALCIUM LEVEL 9.8 MG/DL (8.8-10.2); CREATININE FOR GFR 1.73 MG/DL (0.55-1.30); GLOMERULAR FILTRATION RATE 30.5 (>39); POTASSIUM SERUM 3.7 MEQ/L (3.5-5.1); TOTAL PROTEIN 6.9 GM/DL (6.4-8.2)
[2022-04-19 17:11] LABS: PTH INTACT 31.5 PG/ML (18.5-88.0)
[2022-04-19 18:39] LABS: IMMUNOGLOBULIN M 27.5 MG/DL (40-230)
== END ==
LOC: M PLALAB 13:31
PROVIDERS: ATTEND Family Medicine
DX: E53.8 Deficiency of other specified B group vitamins (principal); I10 Essential (primary) hypertension; D75.89 Other specified diseases of blood and blood-forming organs

== ENCOUNTER → 2022-11-01 | Outpatient (CLI) | payer MEDICARE ==
[2022-11-01 13:48] LABS: BASO # 0.1 10^3/uL (0.0-0.2); BASO % 1.1 % (0.0-1.0); EOS # 0.3 10^3/uL (0.0-0.5); EOS % 4.5 % (0.0-3.0); HEMATOCRIT 37.5 % (36.0-47.0); HEMOGLOBIN 11.7 g/dl (12.0-15.5); LYMPH # 1.6 10^3/uL (1.5-5.0); LYMPH % 24.8 % (24.0-44.0); MEAN CORPUSCULAR HEMOGLOBIN 29.7 pg (27.0-33.0); MEAN CORPUSCULAR HGB CONC 31.2 g/dl (32.0-36.5); MEAN CORPUSCULAR VOLUME 95.2 fl (80.0-96.0); MONO # 0.5 10^3/uL (0.0-0.8); MONO % 8.4 % (2.0-8.0); NEUTROPHILS # 3.8 10^3/uL (1.5-8.5); NEUTROPHILS % 60.9 % (36.0-66.0); PLATELET COUNT, AUTOMATED 294 10^3/uL (150-450); RED BLOOD COUNT 3.94 10^6/uL (4.00-5.40); WHITE BLOOD COUNT 6.3 10^3/uL (4.0-10.0)
[2022-11-01 16:07] LABS: ALBUMIN 3.7 G/DL (3.2-5.2); BILIRUBIN,TOTAL 0.4 MG/DL (0.3-1.2); CALCIUM LEVEL 9.6 MG/DL (8.3-10.6); CREATININE FOR GFR 1.48 MG/DL (0.55-1.30); FERRITIN 30.9 NG/ML (7.3-270.7); FREE T4 1.08 NG/DL (0.89-1.76); GLOMERULAR FILTRATION RATE 36.5 (>39); MAGNESIUM LEVEL 1.9 MG/DL (1.8-2.4); POTASSIUM SERUM 4.9 MMOL/L (3.5-5.1); THYROID STIMULATING HORMONE 2.971 uIU/ML (0.55-4.78); TOTAL PROTEIN 6.2 G/DL (5.7-8.2)
== END ==
LOC: M PLALAB 09:44
PROVIDERS: ATTEND Family Medicine
DX: E78.2 Mixed hyperlipidemia (principal); I10 Essential (primary) hypertension; K27.9 Peptic ulcer, site unspecified, unspecified as acute or chronic, without hemorrhage or perforation

== ENCOUNTER 2023-01-25 10:53 | Outpatient (RCR) | payer MEDICARE | END 2023-01-26 | LOC: M PT 10:53 | PROVIDERS: ATTEND Orthopaedic Surgery | DX: M25.512 Pain in left shoulder (principal) ==

== ENCOUNTER 2023-02-23 10:57 | Outpatient (RCR) | payer MEDICARE | END 2023-02-25 | LOC: M PT 10:57 | PROVIDERS: ATTEND Orthopaedic Surgery | DX: M25.512 Pain in left shoulder (principal) ==

== ENCOUNTER 2023-04-06 10:30 | Emergency (ER) | payer MEDICARE ==
[~2023-04-06] VITALS: Ht 162.6 cm; Wt 61.5 kg
[2023-04-06 10:30] VITALS: TEMP 98.2
[2023-04-06 13:26] VITALS: BP 168/72; O2SAT 99
== END 2023-04-06 13:28 | disposition home or self-care (01) ==
LOC: M ED 10:30
DX: S90.01XA Contusion of right ankle, initial encounter (principal); S90.31XA Contusion of right foot, initial encounter; W19.XXXA Unspecified fall, initial encounter; I10 Essential (primary) hypertension; Z79.899 Other long term (current) drug therapy; Z88.0 Allergy status to penicillin

== ENCOUNTER → 2023-04-13 | Outpatient (CLI) | payer MEDICARE | LOC: M RAD 16:34 | PROVIDERS: ATTEND Physician Assistant | DX: M25.471 Effusion, right ankle (principal); S93.491A Sprain of other ligament of right ankle, initial encounter; X58.XXXA Exposure to other specified factors, initial encounter; Y92.9 Unspecified place or not applicable; Y93.9 Activity, unspecified; Y99.9 Unspecified external cause status ==

== ENCOUNTER → 2023-08-01 | Outpatient (CLI) | payer MEDICARE ==
[2023-08-01 14:01] LABS: BASO # 0.1 10^3/uL (0.0-0.2); BASO % 1.3 % (0.0-1.0); EOS # 0.2 10^3/uL (0.0-0.5); EOS % 4.1 % (0.0-3.0); HEMATOCRIT 35.8 % (36.0-47.0); HEMOGLOBIN 11.4 g/dl (12.0-15.5); LYMPH # 1.3 10^3/uL (1.5-5.0); LYMPH % 23.4 % (24.0-44.0); MEAN CORPUSCULAR HEMOGLOBIN 29.7 pg (27.0-33.0); MEAN CORPUSCULAR HGB CONC 31.8 g/dl (32.0-36.5); MEAN CORPUSCULAR VOLUME 93.2 fl (80.0-96.0); MONO # 0.5 10^3/uL (0.0-0.8); MONO % 9.7 % (2.0-8.0); NEUTROPHILS # 3.2 10^3/uL (1.5-8.5); NEUTROPHILS % 60.6 % (36.0-66.0); PLATELET COUNT, AUTOMATED 280 10^3/uL (150-450); RED BLOOD COUNT 3.84 10^6/uL (4.00-5.40); WHITE BLOOD COUNT 5.4 10^3/uL (4.0-10.0)
[2023-08-01 14:48] LABS: CREATININE, URINE 35.4 MG/DL; CREATININE,RANDOM URINE 35.4 MG/DL
[2023-08-01 14:50] LABS: MALB URINE SIEMENS < 3.0 MG/L; MAU/CREAT RATIO 8.4 MCG/MG (0.0-30.0)
[2023-08-01 14:57] LABS: TOTAL PROTEIN,RANDOM URINE < 6.0 MG/DL (0.0-14.0)
[2023-08-01 15:03] LABS: ALBUMIN 3.7 G/DL (3.2-5.2); BILIRUBIN,TOTAL 0.5 MG/DL (0.3-1.2); CALCIUM LEVEL 9.5 MG/DL (8.3-10.6); CREATININE FOR GFR 1.37 MG/DL (0.55-1.30); GLOMERULAR FILTRATION RATE 39.8 (>39); POTASSIUM SERUM 4.1 MMOL/L (3.5-5.1); PTH INTACT 24.3 PG/ML (18.5-88.0); TOTAL PROTEIN 6.2 G/DL (5.7-8.2)
== END ==
LOC: M PLALAB 10:47
PROVIDERS: ATTEND Family Medicine
DX: D50.9 Iron deficiency anemia, unspecified (principal); E53.8 Deficiency of other specified B group vitamins; I10 Essential (primary) hypertension

== ENCOUNTER → 2023-08-02 | Outpatient (REF) | payer MEDICARE | LOC: M SFHCPLAZ 15:31 | PROVIDERS: ATTEND Family Medicine | DX: D50.9 Iron deficiency anemia, unspecified (principal); D80.1 Nonfamilial hypogammaglobulinemia; I10 Essential (primary) hypertension ==

== ENCOUNTER 2023-08-12 14:56 | Outpatient (CLI) | payer MEDICARE ==
[~2023-08-12] VITALS: Ht 162.6 cm; Wt 64.0 kg
[~2023-08-12 14:56] MED LIST changes: +ALBUTEROL SULFATE 2.5MG/0.5ML INH NEB SOLN INH PRN; +EPINEPHrine INJ 1 MG/ML 1ML AMP IM PRN; +diphenhydrAMINE 50MG/ML VIAL IV PRN; +methylPREDNISolone 125MG 2ML VIAL IV PRN
[2023-08-12] MEDS ORDERED: FERRIC CARBOXYMALTOSE INJ 750 MG in NS 250 ML (>50kg) IV ONE ×3 (15:30)
[2023-08-12] MEDS ORDERED: NS 1,000 ML IV SCH (15:30)
[2023-08-12 15:38] VITALS: BP 154/65; O2SAT 97
[2023-08-12 17:15] VITALS: BP 132/82; O2SAT 96
== END 2023-08-12 17:45 | disposition home or self-care (01) ==
LOC: M INFU 14:56
PROVIDERS: ATTEND Family Medicine
DX: D50.9 Iron deficiency anemia, unspecified (principal); Z88.0 Allergy status to penicillin
CPT/HCPCS: 96365; J1439

== ENCOUNTER → 2024-01-17 | Outpatient (CLI) | payer MEDICARE ==
[~2024-01-17] MED LIST changes: -ALBUTEROL SULFATE 2.5MG/0.5ML INH NEB SOLN INH PRN; -EPINEPHrine INJ 1 MG/ML 1ML AMP IM PRN; -diphenhydrAMINE 50MG/ML VIAL IV PRN; -methylPREDNISolone 125MG 2ML VIAL IV PRN
[2024-01-17 14:00] LABS: BASO # 0.1 10^3/uL (0.0-0.2); EOS # 0.2 10^3/uL (0.0-0.5); HEMATOCRIT 36.9 % (36.0-47.0); HEMOGLOBIN 11.8 g/dl (12.0-15.5); LYMPH % 19.4 % (24.0-44.0); MEAN CORPUSCULAR HEMOGLOBIN 30.8 pg (27.0-33.0); MEAN CORPUSCULAR VOLUME 96.3 fl (80.0-96.0); MONO # 0.5 10^3/uL (0.0-0.8); MONO % 9.5 % (2.0-8.0); NEUTROPHILS # 3.3 10^3/uL (1.5-8.5); NEUTROPHILS % 66.9 % (36.0-66.0); PLATELET COUNT, AUTOMATED 243 10^3/uL (150-450); RED BLOOD COUNT 3.83 10^6/uL (4.00-5.40)
[2024-01-17 14:05] LABS: ALBUMIN 3.9 G/DL (3.2-5.2); BILIRUBIN,TOTAL 0.5 MG/DL (0.3-1.2); CALCIUM LEVEL 9.6 MG/DL (8.3-10.6); CREATININE FOR GFR 1.52 MG/DL (0.55-1.30); GLOMERULAR FILTRATION RATE 35.3 (>39); PERCENT SATURATION 13.1 % (13.2-45.0); POTASSIUM SERUM 4.2 MMOL/L (3.5-5.1)
== END ==
LOC: M PLALAB 10:15
PROVIDERS: ATTEND Student in an Organized Health Care Education/Training Program
DX: Z01.818 Encounter for other preprocedural examination (principal); D64.9 Anemia, unspecified

== ENCOUNTER → 2024-06-07 | Outpatient (REF) | payer MEDICARE | LOC: M SFHCPLAZ 17:00 | PROVIDERS: ATTEND Physician Assistant Medical | DX: J06.9 Acute upper respiratory infection, unspecified (principal) ==

== ENCOUNTER → 2024-11-28 | Outpatient (CLI) | payer MEDICARE ==
[2024-11-28 15:00] LABS: URIC ACID 7.4 MG/DL (3.1-7.8)
[2024-11-28 15:03] LABS: C REACTIVE PROTEIN QUANTITATIV < 0.50 MG/DL (<1.0)
[2024-11-28 15:06] LABS: RHEUMATOID FACTOR QUANT < 3.5 IU/ML (<14)
[2024-11-29 14:33] LABS: ANA SCREEN, IFA NEGATIVE (NEGATIVE)
== END ==
LOC: M PLALAB 09:14
PROVIDERS: ATTEND Orthopaedic Surgery
DX: M79.643 Pain in unspecified hand (principal)

== ENCOUNTER → 2024-12-26 | Outpatient (CLI) | payer MEDICARE ==
[2024-12-26 15:46] LABS: EOS # 0.2 10^3/uL (0.0-0.5); EOS % 3.2 % (0.0-3.0); HEMOGLOBIN 12.2 g/dl (12.0-15.5); LYMPH # 1.3 10^3/uL (1.5-5.0); LYMPH % 25.6 % (24.0-44.0); MEAN CORPUSCULAR HGB CONC 32.1 g/dl (32.0-36.5); MEAN CORPUSCULAR VOLUME 93.6 fl (80.0-96.0); MONO # 0.4 10^3/uL (0.0-0.8); MONO % 7.8 % (2.0-8.0); NEUTROPHILS # 3.2 10^3/uL (1.5-8.5); NEUTROPHILS % 63.2 % (36.0-66.0); PLATELET COUNT, AUTOMATED 279 10^3/uL (150-450); RED BLOOD COUNT 4.06 10^6/uL (4.00-5.40)
[2024-12-26 16:01] LABS: MALB URINE SIEMENS < 3.0 MG/L
[2024-12-26 16:02] LABS: ALBUMIN 3.7 G/DL (3.2-5.2); BILIRUBIN,TOTAL 0.3 MG/DL (0.3-1.2); CALCIUM LEVEL 9.7 MG/DL (8.3-10.6); CHOLESTEROL RISK RATIO 3.5 (<5); CREATININE FOR GFR 1.47 MG/DL (0.55-1.30); CREATININE, URINE 70.9 MG/DL; GLOMERULAR FILTRATION RATE 36.3 (>39); LDL CHOLESTEROL 131.6 MG/DL (<100); POTASSIUM SERUM 3.8 MMOL/L (3.5-5.1); TOTAL PROTEIN 6.1 G/DL (5.7-8.2)
== END ==
LOC: M PLALAB 12:57
PROVIDERS: ATTEND Student in an Organized Health Care Education/Training Program
DX: D50.8 Other iron deficiency anemias (principal); M81.0 Age-related osteoporosis without current pathological fracture; E55.9 Vitamin D deficiency, unspecified; N18.32 Chronic kidney disease, stage 3b; I12.9 Hypertensive chronic kidney disease with stage 1 through stage 4 chronic kidney disease, or unspecified chronic kidney disease

== ENCOUNTER 2025-01-07 12:57 | Outpatient (CLI) | payer MEDICARE ==
[~2025-01-07] VITALS: Ht 162.6 cm; Wt 63.6 kg
[~2025-01-07 12:57] MED LIST changes: +ALBUTEROL SULFATE 2.5MG/0.5ML INH CONCENTRATE NEB SOLN INH PRN; +EPINEPHrine INJ 1 MG/ML 1ML AMP IM PRN; +diphenhydrAMINE 50MG/ML VIAL IV PRN; +methylPREDNISolone 125MG 2ML VIAL IV PRN
[2025-01-07 13:00] VITALS: BP 133/68; O2SAT 97
[2025-01-07] MEDS: FERRIC CARBOXYMALTOSE 750 MG (VIAL MATE) IN 100ML NS IV ONE (13:12)
[2025-01-07 13:50] VITALS: BP 132/64; O2SAT 98
== END 2025-01-07 13:48 | disposition home or self-care (01) ==
LOC: M INFU 12:57
PROVIDERS: ATTEND Student in an Organized Health Care Education/Training Program
DX: D50.8 Other iron deficiency anemias (principal); Z88.0 Allergy status to penicillin
CPT/HCPCS: 96365; J1439